=== PATIENT | male | born 1960 | race Caucasian/White ===

== ENCOUNTER 2016-02-28 08:55 | Inpatient (IN) | payer BC ==
[~2016-02-28] VITALS: Ht 162.6 cm; Wt 80.0 kg
[~2016-02-28 08:55] MED LIST: CIPR500T4 PO; HYDR-906 PO
[2016-02-28 08:58] VITALS: Ht 162.6 cm; Wt 80.0 kg
[2016-02-28 10:36] LABS: BASOPHILS % 0.2 % (0.0-2.0); EOSINOPHILS # 0.1 10^3/ul (0.0-0.5); EOSINOPHILS % 1.2 % (0.0-7.0); HEMOGLOBIN 15.4 g/dl (14.0-18.0); LYMPHOCYTES # 1.4 10^3/ul (0.8-2.9); LYMPHOCYTES % 12.2 % (15.0-51.0); MEAN CORPUSCULAR HEMOGLOBIN 29.6 pg (29.0-33.0); MEAN CORPUSCULAR HGB CONC 33.5 g/dl (32.0-37.0); MEAN CORPUSCULAR VOLUME 88.4 fl (82.0-101.0); MEAN PLATELET VOLUME 8.3 fl (7.4-10.4); MONOCYTES % 8.4 % (0.0-11.0); NEUTROPHIL # 9.1 10^3/ul (1.6-7.5); PLATELET COUNT 317 10^3/UL (140-440); RED BLOOD COUNT 5.21 10^6/ul (4.70-6.10); UNCORRECTED WBC 11.7 10^3/ul (4.8-10.8); WHITE BLOOD COUNT 11.7 10^3/ul (4.8-10.8)
[2016-02-28 10:43] LABS: CONDITION 1
[2016-02-28 10:50] LABS: ALBUMIN 4.2 g/dl (3.3-4.9)
[2016-02-28 10:51] LABS: POTASSIUM 3.9 mmol/L (3.5-5.1)
[2016-02-28 10:53] LABS: CREATININE 0.69 mg/dl (0.61-1.24)
[2016-02-28 10:54] LABS: ALBUMIN/GLOBULIN RATIO 0.91; BILIRUBIN,INDIRECT 0.3 mg/dl (0-1.1); BILIRUBIN,TOTAL 0.3 mg/dl (0.2-1.3); TOTAL PROTEIN 8.8 g/dl (6.1-8.1)
[2016-02-28 11:28] LABS: ADD UMIC YES; URINE BILIRUBIN (Dip) NEGATIVE (NEGATIVE); URINE BLOOD (Dip) 3+ (NEGATIVE); URINE COLOR LT. YELLOW (YELLOW); URINE GLUCOSE (Dip) NEGATIVE (NEGATIVE); URINE KETONES (Dip) 40 (NEGATIVE); URINE LEUKOCYTE ESTERASE (Dip) 3+ (NEGATIVE); URINE NITRITE (Dip) NEGATIVE (NEGATIVE); URINE TOTAL PROTEIN (Dip) NEGATIVE (NEGATIVE); URINE UROBILINOGEN (Dip) 0.2 E.U./dL (0.1-1.0)
[2016-02-28 12:18] LABS: BACTERIA,URINE MODERATE
--- NOTE | 2016-02-28 12:32 | RADRPT ---
PROCEDURE: Scrotal ultrasound CLINICAL INDICATION: Testicular swelling, pain, and erythema. TECHNIQUE: Scrotal ultrasound was performed with sagittal and transverse views. Thorpe scale and co joanne imaging was performed. Images were reviewed on high resolution PACS monitors. COMPARISON: Exam dated 02/04/2016. FINDINGS: The right testicle measures 4.8 x 3.4 x 2.9 cm. The right testicle measures 4.8 x 3.4 x 2.9 cm. Ther e is a 5.2 x 2.8 cm heterogeneous collection that causes scalloping of the right testicle, consisten t with a testicular abscess. There is hyperemia of the remaining testicle. The right epididymis is enlarged and hyperemic. The left testicle measures 4.5 x 1.9 x 2.7 cm. There is normal size, echogenicity, and morphology of the left testicle. The left epididymis is normal in appearance.. There is diffuse scrotal wall thickening. There is normal flow within the left testicle. IMPRESSION: 1. New right testicular abscess measuring 5.2 x 2.8 cm. Urology consultation is recommended. Hype remic right testicle and right epididymis, consistent with epididymo-orchitis. 2. Diffuse scrotal wall thickening, likely reactive in nature. These findings discussed with MARGARITA Pizarro, at 1228 hours on 02/28/2016. RPTAT: TT .Emdundo Mohr MD, MD Date Time Electronically viewed and signed by .Edmundo Mohr MD, MD on 02/28/2016 12:31 .P/
[2016-02-28] MEDS ORDERED: PIPER-TAZO 3.375 GM IV (PMX) 100 ML IVPB STA (12:35)
[2016-02-28] MEDS ORDERED: SOD CHLORIDE 0.9% 1,000 ML IV STA (12:35)
[2016-02-28] MEDS ORDERED: VANCOMYCIN 1 GM (PMX) 250 ML IVPB SCH (13:00)
[2016-02-28] MEDS ORDERED: BENA10TA48 PO (13:10)
[2016-02-28] MEDS ORDERED: METF-388 PO (13:10)
[2016-02-28] MEDS ORDERED: GLIM1TAB2 PO (13:10)
[2016-02-28] MEDS ORDERED: ATOR40TA68 PO (13:11)
--- NOTE | 2016-02-28 13:14 | ERA ---
ER Documentation Chief Complaint Date/Time DATE: 02/28/16 TIME: 13:13 Chief Complaint right testicle swelling. been treated with antibiotics on feb 03 already (AUDREY WHITAKER PA-C) HPI This is a 55-year-old male with past medical history of HTN, DMII, and hyperlipidemia presenting to the emergency room complaining of testicular swelling and tenderness for 1 month. Patient has been seen here on February 03 and diagnosed with epididymitis and a urinary tract infection. Patient was treated with ceftriaxone and azithromycin in the ED and sent home with Cipro for 7 days. Patient was instructed to follow-up with her primary care physician , in which she did and has a urology follow-up appointment in 8 days. Patient presents today complaining of increased redness and swelling to his right testicle which has worsened in the past week. He states that when he first started taking the antibiotic it started improving however when he finished antibiotic course, it got worse. Patient complains of 6 out of 10 pain, describing as pressure. He denies any fever. Denies any hematuria or urinary symptoms. (AUDREY WHITAKER PA-C) ROS All systems reviewed and are negative except as per history of present illness. (AUDREY WHITAKER PA-C) Medications Home Meds Reported Medications Atorvastatin* (Atorvastatin*) 40 Mg Tablet, 40 MG PO QHS, #30 TAB 02/28/16 Metformin Hcl* (Metformin Hcl*) 1,000 Mg Tablet, 1000 MG PO WITH BREAKFAST DINNE , #30 TAB 02/28/16 Glimepiride* (Glimepiride*) 1 Mg Tablet, 1 MG PO WITH BREAKFAST DINNE, TAB 02/28/16 Benazepril Hcl* (Benazepril Hcl*) 10 Mg Tablet, 10 MG PO DAILY, #30 TAB 02/28/16 Discontinued Scripts Hydrocodone/Acetaminophen (Cantril 5-325 Tablet) 1 Each Tablet, 1 TAB PO Q6H Y for PAIN, #20 TAB Prov:HOWIE TRINIDAD PA-C 02/04/16 Ciprofloxacin Hcl* (Ciprofloxacin Hcl*) 500 Mg Tablet, 500 MG PO BID for 7 Days , TAB Prov:HOWIE TRINIDAD PA-C 02/04/16 Allergies Allergies: Coded Allergies: No Known Allergy (Unverified , 02/28/16) PMhx/Soc History of Surgery: No Anesthesia Reaction: No Hx Neurological Disorder: No Hx Respiratory Disorders: No Hx Cardiac Disorders: Yes (DMII) Hx Psychiatric Problems: No Hx Miscellaneous Medical Probl: No Hx Alcohol Use: No Hx Substance Use: No Hx Tobacco Use: No Smoking Status: Never smoker (AUDREY WHITAKER PA-C) Physical Exam Vitals Vital Signs Date Time Temp Pulse Resp B/P Pulse Ox O2 Delivery O2 Flow Rate FiO2 02/28/16 08:58 98.1 99 20 180/99 99 (MARIBELERICH ) Physical Exam General: well-developed/well-nourished, in no apparent distress, non-toxic appearing HENT: NC/AT, bilateral tympanic membrane is normal with good cone of light, nares patent, oropharynx clear without exudates Eyes: Conjunctiva normal, PERRLA, EOMI Neck: Supple, no lymphadenopathy Pulm: CTA bilaterally, no rales, rhonchi, or wheezing heard CV: Normal S1S2, RRR, good capillary refill GI: Soft, non-distended, normal bowel sounds, non-tender : no penile discharge or lesions erythematous, enlarged with induration and warmth BL testicles R>L Back: No midline tenderness, no masses, No CVAT Ext: No clubbing, cyanosis, or edema Neuro: Alert and Orientated, CN II-IIX intact, gait normal Skin: Intact, normal turgor Psych: Normal mood and mentation (AUDREY WHITAKER PA-C) Result Diagram: 02/28/1631 02/28/16 0931 Results 24 hrs Laboratory Tests Test 02/28/16 09:31 02/28/16 10:12 02/28/16 10:26 Alanine Aminotransferase (ALT/SGPT) 8IU/L Albumin 4.2g/dl Albumin/Globulin Ratio 0.91 Alkaline Phosphatase 106IU/L Anion Gap 20 Aspartate Amino Transf (AST/SGOT) 14IU/L Basophils # 0.010^3/ul Basophils % 0.2% Blood Urea Nitrogen 9mg/dl Calcium Level 10.0mg/dl Carbon Dioxide Level 27mmol/L Chloride Level 95mmol/L Creatinine 0.69mg/dl Direct Bilirubin 0.00mg/dl Eosinophils # 0.110^3/ul Eosinophils % 1.2% Globulin 4.60g/dl Glucose Level 197mg/dl Hematocrit 46.0% Hemoglobin 15.4g/dl Indirect Bilirubin 0.3mg/dl Lymphocytes # 1.410^3/ul Lymphocytes % 12.2% Mean Corpuscular Hemoglobin 29.6pg Mean Corpuscular Hemoglobin Concent 33.5g/dl Mean Corpuscular Volume 88.4fl Mean Platelet Volume 8.3fl Monocytes # 1.010^3/ul Monocytes % 8.4% Neutrophils # 9.110^3/ul Neutrophils % 78.0% Nucleated Red Blood Cells # 0.010^3/ul Nucleated Red Blood Cells % 0.0/100WBC Platelet Count 53240^3/UL Potassium Level 3.9mmol/L Red Blood Count 5.2110^6/ul Red Cell Distribution Width 14.0% Sodium Level 138mmol/L Total Bilirubin 0.3mg/dl Total Protein 8.8g/dl White Blood Count 11.710^3/ul Lactic Acid Level 1.4mmol/L Urine Bacteria MODERATE Urine Bilirubin NEGATIVE Urine Clarity CLEAR Urine Color LT. YELLOW Urine Epithelial Cells FEW Urine Glucose NEGATIVE% Urine Hemoglobin 3+ Urine Ketones 40 Urine Leukocyte Esterase 3+ Urine Microscopic RBC 2-5/HPF Urine Microscopic WBC 25-50/HPF Urine Nitrite NEGATIVE Urine Specific [place] <=1.005 Urine Total Protein NEGATIVE Urine Urobilinogen 0.2 E.U./dL Urine pH 6.0 Current Medications Medications (Trade) Dose Ordered Sig/Haris Route PRN Reason Start Time Stop Time Status Last Admin Dose Admin Sodium Chloride 1,000 ml @ 1,000 mls/hr Q1H STAT IV 02/28/16 12:35 02/28/16 13:34 DC 02/28/16 13:32 Piperacillin Sod/ Tazobactam Sod 100 ml @ 200 mls/hr ONCE STAT IVPB 02/28/16 12:35 02/28/16 13:04 DC 02/28/16 13:32 Vancomycin HCl (Vancocin) 250 ml @ 125 mls/hr ONCE IVPB 02/28/16 13:00 02/28/16 14:59 Ondansetron HCl (Zofran Inj) 4 mg BRIDGE ORDER PRN IV NAUSEA AND/OR VOMITING 02/28/16 14:00 02/29/16 13:59 Acetaminophen (Tylenol Tab) 650 mg ER BRIDGE PRN PO MILD PAIN/FEVER 02/28/16 14:00 02/29/16 13:59 (ERICH LÓPEZ DO) Procedures/MDM This is a 55-year-old male with past medical history of HTN, DMII, and hyperlipidemia presenting to the emergency room complaining of testicular swelling and tenderness for 1 month. Patient presents today with a testicular abscess. Patient has been seen here on February 03 and diagnosed with epididymitis and a urinary tract infection. Patient was treated with ceftriaxone and azithromycin in the ED and sent home with Cipro for 7 days. Patient was instructed to follow-up with her primary care physician, in which she did and has a urology follow-up appointment in 8 days. Patient presents today complaining of increased redness and swelling to his right testicle which has worsened in the past week. He states that when he first started taking the antibiotic it started improving however when he finished antibiotic course, it got worse. IV access was established. Lab work was drawn. CBC did not show any evidence of significant leukocytosis or anemia. White count was mildly elevated at 11.7 likely due to stress reaction. CMP was unremarkable. Lactate was 1.4. Blood cultures was sent out. Urinalysis did show evidence of a urinary tract infection with +3 leukocyte esterase, 25-50 WBC, and 3+ hgb Scrotal ultrasound showed a new right testicular abscess which would need admission for a urology consultation and drainage. I have consulted Dr. López who has evaluated the patient and helps me advised my management. He advised to give patient Zosyn 3.375 and Vanco 1gram. Patient will be moved to the ER [address] López's care prior to admission, he was stable for transfer. Dr. López will consult hospitalist and urologist Scrotal Ultrasound Today (02/28/2016): 1. New right testicular abscess measuring 5.2 x 2.8 cm. Urology consultation is recommended. Hyperemic right testicle and right epididymis, consistent with epididymo-orchitis. 2. Diffuse scrotal wall thickening, likely reactive in nature. Scrotal Ultrasound (02/03/2017) 1. Hyperemia and enlargement of the right epididymis consistent with epididymitis. 2. Mild hyperemia of the right testis consistent with orchitis. 3. Otherwise unremarkable scrotal ultrasound. (AUDREY WHITAKER PA-C) I saw and examined this patient along with the physician's assistant bookkeeper. Patient initially just wanted to get an antibiotic shot but I talked him into getting an ultrasound. Her concerning appearance of his scrotum which was enlarged and more erythematous and indurated than prior. A testicular abscess and diffuse wall thickening. Advise getting labs and started the patient vancomycin and Zosyn. Angina prevent progression to Nadege's gangrene and damage in loss of genital organs. I spoke with Dr. Mcguire regarding the case he says that Dr. Curiel will see the patient in consult in the Place the patient nothing by mouth diet. I spoke with Dr. Restrepo will be admitting the patient to [facility] awaiting urological surgical management. Patient did have a mild elevated white blood cell count otherwise no other signs of sepsis and infection seems to mostly localized at this point. (ERICH LÓPEZ DO) Departure Diagnosis: Primary Impression: Testicular abscess Additional Impression: UTI (urinary tract infection) Qualified Code: N30.01 - Acute cystitis with hematuria Condition: Serious AUDREY WHITAKER PA-C Feb 28, 2016 13:13 ERICH LÓPEZ DO Feb 28, 2016 14:58
[2016-02-28] MEDS ORDERED: ACETAMINOPHEN 325 MG TAB PO PRN (14:00)
[2016-02-28] MEDS ORDERED: ONDANSETRON 4 MG INJ IV PRN ×2 (14:00→16:00)
[2016-02-28] MEDS ORDERED: HYPOGLYCEMIA PROTOCOL when Glucose is <70 mg/dL or symptomatic <90 mg/dL. XX ONE (16:00)
[2016-02-28] MEDS: SOD CHLORIDE 0.9% 1,000 ML IV SCH ×2 (16:00→21:58)
[2016-02-28] MEDS ORDERED: GLUCAGON 1 MG INJ IM PRN (16:30)
[2016-02-28] MEDS ORDERED: GLUCOSE GEL 15 GRAM TUBE PO PRN ×2 (16:30)
[2016-02-28] MEDS ORDERED: DEXTROSE 50% 50 ML SYRINGE IV PRN ×2 (16:30)
[2016-02-28] MEDS ORDERED: GLUCOSE GEL 15 GRAM TUBE BUCCAL PRN (16:30)
[2016-02-28 17:15] VITALS: TEMP 98.1
[2016-02-28 17:19] LABS: CANNABINOIDS Positive (NEGATIVE)
[2016-02-28] MEDS ORDERED: VANCOMYCIN IV PER PHARMACY XX SCH (17:30)
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
[2016-02-28 17:50] LABS: BARBITURATES Negative (NEGATIVE); BENZODIAZEPINES Negative (NEGATIVE); COCAINE Negative (NEGATIVE); OPIATES Negative (NEGATIVE)
[2016-02-28] MEDS ORDERED: metFORMIN 500 MG TAB PO SCH (18:00)
[2016-02-28] MEDS ORDERED: NICOTINE POLACRILEX 2 MG GUM BUCCAL PRN (18:00)
[2016-02-28] MEDS ORDERED: GLIMEPIRIDE 2 MG TAB PO SCH (18:00)
[2016-02-28] MEDS: VANCOMYCIN 1.25 GM in SOD CHLORIDE 0.9% 250 ML IVPB SCH (18:45)
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
[2016-02-28] MEDS: NICOTINE (21 MG/24 HR) PATCH TRANSDERM SCH (19:17)
[2016-02-28] MEDS: INSULIN ASPART [NOVOLOG] 3 ML PEN SC SCH ×2 (19:31→22:12)
[2016-02-28] MEDS: ATORVASTATIN 40 MG TAB PO SCH (20:53)
[2016-02-28] MEDS: DOCUSATE SODIUM 100 MG CAP PO SCH (20:53)
[2016-02-28] MEDS: HYDROCODONE/APAP (5/325) TAB PO PRN (20:53)
[2016-02-28 21:26] VITALS: BP 142/91; RESP 20
[2016-02-28] MEDS: PIPER-TAZO 3.375 GM IV (PMX) 100 ML IVPB SCH (21:59)
[2016-02-29] VITALS (21 sets, daily range): BP systolic 118–153; BP diastolic 70–88; PULSE 82–94; RESP 14–20
[2016-02-29] MEDS: morphine 2 MG INJ IV PRN ×3 (02:26→20:00)
[2016-02-29 05:20] LABS: BASOPHILS % 0.3 % (0.0-2.0); EOSINOPHILS # 0.2 10^3/ul (0.0-0.5); HEMOGLOBIN 13.1 g/dl (14.0-18.0); LYMPHOCYTES # 1.2 10^3/ul (0.8-2.9); LYMPHOCYTES % 10.5 % (15.0-51.0); MEAN CORPUSCULAR HEMOGLOBIN 29.5 pg (29.0-33.0); MEAN CORPUSCULAR HGB CONC 33.7 g/dl (32.0-37.0); MEAN CORPUSCULAR VOLUME 87.7 fl (82.0-101.0); MEAN PLATELET VOLUME 8.3 fl (7.4-10.4); MONOCYTE # 1.3 10^3/ul (0.3-0.9); MONOCYTES % 11.4 % (0.0-11.0); NEUTROPHIL # 8.3 10^3/ul (1.6-7.5); NEUTROPHILS % 75.8 % (39.0-77.0); PLATELET COUNT 293 10^3/UL (140-440); RED BLOOD COUNT 4.44 10^6/ul (4.70-6.10); RED CELL DISTRIBUTION WIDTH 14.4 % (11.5-14.5); UNCORRECTED WBC 10.9 10^3/ul (4.8-10.8); WHITE BLOOD COUNT 10.9 10^3/ul (4.8-10.8)
[2016-02-29 05:30] LABS: POTASSIUM 3.8 mmol/L (3.5-5.1)
[2016-02-29 05:32] LABS: CREATININE 0.51 mg/dl (0.61-1.24)
[2016-02-29 05:33] LABS: CALCIUM 8.4 mg/dl (8.4-10.2)
[2016-02-29 05:34] LABS: MAGNESIUM 1.9 mg/dl (1.7-2.5)
[2016-02-29] MEDS: PIPER-TAZO 3.375 GM IV (PMX) 100 ML IVPB SCH ×4 (05:36→22:13)
[2016-02-29 06:20] LABS: CONDITION 1
[2016-02-29] MEDS: VANCOMYCIN 1.25 GM in SOD CHLORIDE 0.9% 250 ML IVPB SCH ×2 (06:30→17:53)
[2016-02-29] MEDS: NICOTINE (21 MG/24 HR) PATCH TRANSDERM SCH (08:26)
[2016-02-29] MEDS: FAMOTIDINE 20 MG TAB PO SCH (08:27)
[2016-02-29] MEDS: INSULIN ASPART [NOVOLOG] 3 ML PEN SC SCH ×4 (08:30→21:00)
[2016-02-29] MEDS ORDERED: BENAZEPRIL 10 MG TAB PO SCH (09:00)
[2016-02-29] MEDS: DOCUSATE SODIUM 100 MG CAP PO SCH ×2 (09:00→19:58)
--- NOTE | 2016-02-29 09:52 | PN ---
Date/Time of Note Date/Time of Note DATE: 02/29/16 TIME: 09:46 Assessment/Plan VTE Prophylaxis VTE Prophylaxis Intervention: SCD's Lines/Catheters IV Catheter Type (from Nrsg): Peripheral IV Assessment/Plan Assessment/Plan 55 yo M with 1. R testicular abscess complicating epididymo-orchitis that failed outpt treatment 2. Trauma to scrotum 3. HTN: uncontrolled 4. DM2: Suboptimal control 5. Epidydymo-orchitis : 6. Tobacco abuse PLAN: -Continue broadspectrum abx / appreciate ID input -For abscess drainage today at noon / appreciate urology's prompt intervention -Continue / SSI / resume home regimen post op and modify as indicated -Titrate BP meds for improved control -Tobacco cessation counselling done and will continue to be reinforced throughout hospitalization / nicotine patch and gum provided PRN -Serial labs / pain control/ antiemetics/ antipyretics/ supportive care Prophylaxis: SCDS / pepcid Subjective 24 Hr Interval Summary Free Text/Dictation Patient seen and examined. no new complaints awaiting surgery today Exam/Review of Systems Vital Signs Vitals Vital Signs Date Time Temp Pulse Resp B/P Pulse Ox O2 Delivery O2 Flow Rate FiO2 02/29/16 08:14 98.3 93 20 153/85 96 Intake and Output 02/28/16 02/28/16 02/29/16 15:00 23:00 07:00 Intake Total 800 ml 850 ml Balance 800 ml 850 ml Exam Constitutional: alert, oriented, No distress Psych: nl mood/affect Head: atraumatic, normocephalic Eyes: PERRL, No icteric ENMT: mucosa pink and moist Neck: non-tender, supple Respiratory: clear to auscultation Cardiovascular: regular rate and rhythm, No murmurs/extra sounds Gastrointestinal: non-tender, soft Genitourinary - Male: other (significant testicular swelling R>>L with bilateral tenderness), No nl penis, No nl scrotum Extremities: No edema Neurological: nl mental status, nl speech Skin: No rash or lesions Results Result Diagram: 02/29/160 02/29/16439 Results 24 hrs Laboratory Tests Test 02/28/16 10:12 02/28/16 10:26 02/28/16 19:09 02/28/16 20:55 Lactic Acid Level 1.4 HIV (1&2) Antibody NEGATIVE Urine Amphetamines Screen Negative Urine Bacteria MODERATE Urine Barbiturates Negative Urine Benzodiazepines Screen Negative Urine Bilirubin NEGATIVE Urine Cannabinoids Positive Urine Clarity CLEAR Urine Cocaine Screen Negative Urine Color LT. YELLOW Urine Epithelial Cells FEW Urine Glucose NEGATIVE Urine Hemoglobin 3+ H Urine Ketones 40 Urine Leukocyte Esterase 3+ H Urine Microscopic RBC 2-5 Urine Microscopic WBC 25-50 Urine Nitrite NEGATIVE Urine Opiates Screen Negative Urine Specific Susan <=1.005 L Urine Total Protein NEGATIVE Urine Urobilinogen 0.2 E.U./dL Urine pH 6.0 Bedside Glucose 247 H 190 Test 02/29/16 02:21 02/29/16 04:40 02/29/16 07:53 Bedside Glucose 240 H 228 H Anion Gap 15 Basophils # 0.0 Basophils % 0.3 Blood Urea Nitrogen 7 Calcium Level 8.4 Carbon Dioxide Level 24 Chloride Level 105 # Creatinine 0.51 L Eosinophils # 0.2 Eosinophils % 2.0 Glucose Level 203 Hematocrit 39.0 L Hemoglobin 13.1 L Lymphocytes # 1.2 Lymphocytes % 10.5 L Magnesium Level 1.9 Mean Corpuscular Hemoglobin 29.5 Mean Corpuscular Hemoglobin Concent 33.7 Mean Corpuscular Volume 87.7 Mean Platelet Volume 8.3 Monocytes # 1.3 H Monocytes % 11.4 H Neutrophils # 8.3 H Neutrophils % 75.8 Nucleated Red Blood Cells # 0.0 Nucleated Red Blood Cells % 0.0 Platelet Count 293 Potassium Level 3.8 Red Blood Count 4.44 L Red Cell Distribution Width 14.4 Sodium Level 140 White Blood Count 10.9 H Medications Medications Current Medications Sodium Chloride (NS) 1,000 ml @ 100 mls/hr Q10H IV Last administered on 21:58; Admin Dose 100 MLS/HR; Start 02/28/16 at 16:00 Famotidine (Pepcid) 20 mg DAILY PO Last administered on 02/29/16 08:27; Admin Dose 20 MG; Start 02/29/16 at 09:00 Docusate Sodium (Colace) 100 mg BID PO Last administered on 02/28/16 20:53; Admin Dose 100 MG; Start 02/28/16 at 21:00 Ondansetron HCl (Zofran Inj) 4 mg Q6H PRN IV NAUSEA AND/OR VOMITING; Start at 16:00 Atorvastatin Calcium (Lipitor) 40 mg QHS PO Last administered on 02/28/16 20: 53; Admin Dose 40 MG; Start 02/28/16 at 21:00 Benazepril HCl (Lotensin) 10 mg DAILY PO Last administered on 02/29/16 08:26; Admin Dose 10 MG; Start 02/29/16 at 09:00 Acetaminophen/ Hydrocodone Bitart ([place] (5/325)) 1 tab Q6H PRN PO pain Last administered on 02/28/16 20:53; Admin Dose 1 TAB; Start 02/28/16 at 16:00 Morphine Sulfate (morphine) 2 mg Q4H PRN IV BREAKTHROUGH PAIN Last administered on 02/29/16 06:35; Admin Dose 2 MG; Start 02/28/16 at 16:00 Miscellaneous Information 1 ea NOTE XX ; Start 02/28/16 at 16:30 Glucose (Glutose) 15 gm Q15M PRN PO DECREASED GLUCOSE; Start 02/28/16 at 16:30 Glucose (Glutose) 22.5 gm Q15M PRN PO DECREASED GLUCOSE; Start 02/28/16 at 16: 30 Dextrose (D50w Syringe) 25 ml Q15M PRN IV DECREASED GLUCOSE; Start 02/28/16 at 16:30 Dextrose (D50w Syringe) 50 ml Q15M PRN IV DECREASED GLUCOSE; Start 02/28/16 at 16:30 Glucagon (Glucagen) 1 mg Q15M PRN IM DECREASED GLUCOSE; Start 02/28/16 at 16:30 Glucose 15 gm 15 gm Q15M PRN BUCCAL DECREASED GLUCOSE; Start 02/28/16 at 16:30 Piperacillin Sod/ Tazobactam Sod 100 ml @ 200 mls/hr Q8 IVPB Last administered on 02/29/16 05:39; Admin Dose 200 MLS/HR; Start 02/28/16 at 22:00 Vancomycin HCl/ Sodium Chloride (Vancocin/NS) 250 ml @ 83.333 mls/ hr Q12H IVPB Last administered on 02/29/16 06:30; Admin Dose 83.333 MLS/HR; Start at 18:00 Nicotine (Nicoderm 21 Mg/ 24hr) 1 patch DAILY TRANSDERM Last administered on 08:26; Admin Dose 1 PATCH; Start 02/28/16 at 18:00 Nicotine Polacrilex (Nicorette) 2 mg Q4H PRN BUCCAL cravings; Start 02/28/16 at 18:00 Influenza Virus Vaccine (Fluzone) 0.5 ml ONCE ONCE IM* ; Start 03/02/16 at 09:00 ; Stop 03/02/16 at 09:01 Miscellaneous Information (*Rx Drug Level Order Reminder*) VANCO TROUGH @ 0, 500 ON... ONCE ONCE XX ; Start 03/01/16 at 05:00; Stop 03/01/16 at 05:01 ANTIONE ARTEAGA Feb 29, 2016 09:52
[2016-02-29] MEDS ORDERED: BENAZEPRIL 20 MG TAB PO ONE (10:00)
--- NOTE | 2016-02-29 10:39 | CONS ---
Date/Time of Note Date/Time of Note DATE: 02/29/16 TIME: 10:38 Assessment/Plan Assessment/Plan Chief Complaint/Hosp Course ID PROGRESS NOTE TOTAL ABX DAY # => Vanco IV + Zosyn 24H INTERVAL SUMMARY * OFF FLOOR TO OR TODAY=> EXAM DEFERRED, CHART REVIEWED * Carol: 02/04/16-1104 Rcvd: 02/04/16-1604 Source: CLEAN [facility] Sp Descrip: - Microbiology URINE CULTURE Final Organism 1 ESCHERICHIA COLI COLONY COUNT >100,000 CFU/ml E COLI M.I.C. RX --------- --- AMPICILLIN 4 S CEFAZOLIN S CEFOTAXIME S CIPROFLOXACIN <=0.25 S GENTAMICIN <=1 S LEVOFLOXACIN <=0.12 S NITROFURANTOIN <=16 S TOBRAMYCIN <=1 S TRIMETHOPRIM/SULFAMETHOXAZOLE <=20 S PHYSICAL EXAMINATION: deferred ID ASSESSMENT: 55 yo obese M admit with: 1. Right testicular abscess complicating epididymo-orchitis that failed outpatient treatment w/hx of Trauma to Scrotum * Hx of GNR E.coli UTI 02/04/16 * Repeat UA (+) pyuria 3+ Leuk Esterase w/(-)Micro preliminary 24H 2. SIRS w/borderline tachycardia HR 99, elevated B/P in ED > 180/90, Leukocytosis on admission * No fevers * BCx 02/28/16 (-) 24H 3. HTN: uncontrolled 4. DM2: Suboptimal control 5. HLD 6. Tobacco abuse (-)HIV Screening INVASIVES: *PIV CURRENT ABX: DAY #2 Vanco IV + Zosyn s/p ID RECOMMENDATIONS: CONTINUE Current ABX -> Will f/u post operative . Problems: Consultation Date/Type/Reason Admit Date/Time Feb 28, 2016 at 14:01 Initial Consult Date Exam/Review of Systems Vital Signs Vitals Vital Signs Date Time Temp Pulse Resp B/P Pulse Ox O2 Delivery O2 Flow Rate FiO2 02/29/16 08:14 98.3 93 20 153/85 96 Intake and Output 1/02/28/16 02/29/16 15:00 23:00 07:00 Intake Total 800 ml 850 ml Balance 800 ml 850 ml Results Result Diagram: 02/29/16 0440 02/29/16 0440 Results 24 hrs Laboratory Tests Test 02/28/16 19:09 02/28/16 20:55 02/29/16 02:21 02/29/16 04:40 Bedside Glucose 247 H 190 240 H Anion Gap 15 Basophils # 0.0 Basophils % 0.3 Blood Urea Nitrogen 7 Calcium Level 8.4 Carbon Dioxide Level 24 Chloride Level 105 # Creatinine 0.51 L Eosinophils # 0.2 Eosinophils % 2.0 Glucose Level 203 Hematocrit 39.0 L Hemoglobin 13.1 L Lymphocytes # 1.2 Lymphocytes % 10.5 L Magnesium Level 1.9 Mean Corpuscular Hemoglobin 29.5 Mean Corpuscular Hemoglobin Concent 33.7 Mean Corpuscular Volume 87.7 Mean Platelet Volume 8.3 Monocytes # 1.3 H Monocytes % 11.4 H Neutrophils # 8.3 H Neutrophils % 75.8 Nucleated Red Blood Cells # 0.0 Nucleated Red Blood Cells % 0.0 Platelet Count 293 Potassium Level 3.8 Red Blood Count 4.44 L Red Cell Distribution Width 14.4 Sodium Level 140 White Blood Count 10.9 H Test 02/29/16 07:53 Bedside Glucose 228 H Medications Medications Current Medications Sodium Chloride (NS) 1,000 ml @ 100 mls/hr Q10H IV Last administered on 21:58; Admin Dose 100 MLS/HR; Start 02/28/16 at 16:00 Famotidine (Pepcid) 20 mg DAILY PO Last administered on 02/29/16 08:27; Admin Dose 20 MG; Start 02/29/16 at 09:00 Docusate Sodium (Colace) 100 mg BID PO Last administered on 02/28/16 20:53; Admin Dose 100 MG; Start 02/28/16 at 21:00 Ondansetron HCl (Zofran Inj) 4 mg Q6H PRN IV NAUSEA AND/OR VOMITING; Start at 16:00 Atorvastatin Calcium (Lipitor) 40 mg QHS PO Last administered on 02/28/16 20: 53; Admin Dose 40 MG; Start 02/28/16 at 21:00 Acetaminophen/ Hydrocodone Bitart ([place] (5/325)) 1 tab Q6H PRN PO pain Last administered on 02/28/16 20:53; Admin Dose 1 TAB; Start 02/28/16 at 16:00 Morphine Sulfate (morphine) 2 mg Q4H PRN IV BREAKTHROUGH PAIN Last administered on 02/29/16 06:35; Admin Dose 2 MG; Start 02/28/16 at 16:00 Miscellaneous Information 1 ea NOTE XX ; Start 02/28/16 at 16:30 Glucose (Glutose) 15 gm Q15M PRN PO DECREASED GLUCOSE; Start 02/28/16 at 16:30 Glucose (Glutose) 22.5 gm Q15M PRN PO DECREASED GLUCOSE; Start 02/28/16 at 16: 30 Dextrose (D50w Syringe) 25 ml Q15M PRN IV DECREASED GLUCOSE; Start 02/28/16 at 16:30 Dextrose (D50w Syringe) 50 ml Q15M PRN IV DECREASED GLUCOSE; Start 02/28/16 at 16:30 Glucagon (Glucagen) 1 mg Q15M PRN IM DECREASED GLUCOSE; Start 02/28/16 at 16:30 Glucose 15 gm 15 gm Q15M PRN BUCCAL DECREASED GLUCOSE; Start 02/28/16 at 16:30 Piperacillin Sod/ Tazobactam Sod 100 ml @ 200 mls/hr Q8 IVPB Last administered on 02/29/16 05:39; Admin Dose 200 MLS/HR; Start 02/28/16 at 22:00 Vancomycin HCl/ Sodium Chloride (Vancocin/NS) 250 ml @ 83.333 mls/ hr Q12H IVPB Last administered on 02/29/16 06:30; Admin Dose 83.333 MLS/HR; Start at 18:00 Nicotine (Nicoderm 21 Mg/ 24hr) 1 patch DAILY TRANSDERM Last administered on 08:26; Admin Dose 1 PATCH; Start 02/28/16 at 18:00 Nicotine Polacrilex (Nicorette) 2 mg Q4H PRN BUCCAL cravings; Start 02/28/16 at 18:00 Influenza Virus Vaccine (Fluzone) 0.5 ml ONCE ONCE IM* ; Start 03/02/16 at 09:00 ; Stop 03/02/16 at 09:01 Miscellaneous Information (*Rx Drug Level Order Reminder*) VANCO TROUGH @ 0, 500 ON... ONCE ONCE XX ; Start 03/01/16 at 05:00; Stop 03/01/16 at 05:01 Benazepril HCl (Lotensin) 40 mg DAILY PO ; Start 03/01/16 at 09:00 Insulin Glargine (Lantus) 5 unit ONCE ONCE SC ; Start 02/29/16 at 11:30; Stop 02/29/16 at 11:31 SOHAIL TSE NP Feb 29, 2016 10:39
[2016-02-29 11:02] LABS: INR 1.04; PROTIME 13.6 Sec (12.2-14.2); PT RATIO 1.1
[2016-02-29 11:03] LABS: PARTIAL THROMBOPLASTIN TIME 43.9 Sec (25.0-35.0)
[2016-02-29] MEDS ORDERED: INSULIN GLARGINE [LANtus] 3 ML PEN SC ONE (11:30)
[2016-02-29] MEDS ORDERED: FENTAnyl 50 MCG/ML VIAL IV PRN (12:00)
[2016-02-29] MEDS: SOD CHLORIDE 0.9% 1,000 ML IV SCH (12:00)
[2016-02-29] MEDS ORDERED: METOCLOPRAMIDE 10 MG INJ IV PRN (12:00)
[2016-02-29] MEDS ORDERED: MEPERIDINE 25 MG INJ IV PRN (12:00)
[2016-02-29] MEDS ORDERED: DIPHENHYDRAMINE 50 MG INJ IV PRN (12:00)
[2016-02-29] MEDS ORDERED: MIDAZOLAM 1 MG/ML 2 ML INJ IV PRN (12:00)
[2016-02-29] MEDS ORDERED: ONDANSETRON 4 MG INJ IV PRN ×2 (12:00→13:30)
[2016-02-29] MEDS ORDERED: HYDROmorphONE (0.2 MG/ML) 10ML SYG IV PRN ×2 (12:00)
[2016-02-29] MEDS ORDERED: BUPIVACAINE 0.5% (SDV) 30 ML INJ ONE (12:16)
[2016-02-29] MEDS ORDERED: BACITRACIN/POLYMYXIN 28.35 GM OINT TOP ONE (12:16)
[2016-02-29] MEDS ORDERED: PROPOFOL 20 ML ONE (12:18)
[2016-02-29] MEDS ORDERED: LIDOCAINE 2% (SDV) 5 ML INJ ONE (12:18)
[2016-02-29] MEDS ORDERED: MEPERIDINE 100 MG INJ ONE (12:18)
[2016-02-29] MEDS ORDERED: POLYMYXIN/BACITRACIN 1L IRRIG ONE (12:18)
[2016-02-29] MEDS ORDERED: D5W-0.45 NACL + KCL 20 MEQ 1,000 ML IV SCH (13:16)
[2016-02-29] MEDS ORDERED: CEPASTAT LOZENGE MT PRN (13:30)
[2016-02-29] MEDS ORDERED: HYDROmorphONE 1 MG/ML SYG IV PRN (13:30)
[2016-02-29] MEDS ORDERED: HYDROCODONE/APAP (5/325) TAB PO PRN (13:30)
[2016-02-29] MEDS ORDERED: ACETAMINOPHEN 325 MG TAB PO PRN (13:30)
[2016-02-29] MEDS: FENTAnyl 50 MCG/ML VIAL IV PRN ×2 (13:38→13:55)
--- NOTE | 2016-02-29 14:23 | OPR ---
DATE OF OPERATION: 02/29/2016 PREOPERATIVE DIAGNOSIS: Scrotal abscess. POSTOPERATIVE DIAGNOSIS: Scrotal abscess. OPERATION PERFORMED: Incision and drainage of right-sided scrotal abscess. SURGEON: Osman Curiel MD INDICATION FOR SURGERY: This gentleman presented with a scrotal infection approximately 2 weeks ago and was given oral antibiotics. He came back with an obvious scrotal abscess, confirmed on ultrasou nd. OPERATIVE FINDINGS: The scrotum was filled with a yellow pus which was sent for Gram stain, aerobic and anaerobic cultures, AFB and fungus. The scrotal compartment was completely socked into the scro mylene wall and one could not visualize any normal anatomy. OPERATION: Under general anesthesia the patient was prepped and draped in the supine position. A t ransverse incision was made in the lower aspect of the right scrotum and carried down through the sk in and subcutaneous tissue. About 100 mL of milky pus was removed and sent for pathology. Adhesion s to the scrotal wall were then taken down bluntly. The testicle could not be everted through the w ound, so I left it in situ, as it was viable on ultrasound. At this point the wound was copiously i rrigated with 1 liter of antibiotic solution and then a Tejinder drain brought out through a separate stab wound on the inferior aspect of the scrotum and left lying in the scrotal compartment. The wo und was closed very lightly with Vicryl to the subcutaneous tissue and chromic to the skin. Estimat ed blood loss was approximately 5 mL. A sterile dressing was placed with scrotal fluffs. 10 mL of 0.5% Marcaine plain was instilled into the cord and into the subcutaneous tissue. The patient was a wakened and brought to the recovery room in stable condition. Dictated By: OSMAN CURIEL MD RS/NTS Conf#: [id number] DID#: [id number]
[2016-02-29] MEDS: ATORVASTATIN 40 MG TAB PO SCH (19:58)
[2016-03-01] VITALS: BP 135/75; PULSE 80; RESP 18
[2016-03-01 00:13] VITALS: BP 135/75; RESP 20
[2016-03-01] MEDS: morphine 2 MG INJ IV PRN ×2 (02:28→17:19)
[2016-03-01 05:12] LABS: POTASSIUM 3.6 mmol/L (3.5-5.1)
[2016-03-01 05:15] LABS: CREATININE 0.54 mg/dl (0.61-1.24)
[2016-03-01 05:16] LABS: BASOPHILS % 0.3 % (0.0-2.0); EOSINOPHILS # 0.2 10^3/ul (0.0-0.5); EOSINOPHILS % 2.5 % (0.0-7.0); HEMATOCRIT 39.1 % (42.0-52.0); HEMOGLOBIN 13.2 g/dl (14.0-18.0); LYMPHOCYTES # 1.2 10^3/ul (0.8-2.9); LYMPHOCYTES % 12.4 % (15.0-51.0); MEAN CORPUSCULAR HEMOGLOBIN 29.9 pg (29.0-33.0); MEAN CORPUSCULAR HGB CONC 33.8 g/dl (32.0-37.0); MEAN CORPUSCULAR VOLUME 88.4 fl (82.0-101.0); MEAN PLATELET VOLUME 8.3 fl (7.4-10.4); MONOCYTE # 1.1 10^3/ul (0.3-0.9); MONOCYTES % 11.5 % (0.0-11.0); NEUTROPHIL # 7.3 10^3/ul (1.6-7.5); NEUTROPHILS % 73.3 % (39.0-77.0); PLATELET COUNT 281 10^3/UL (140-440); RED BLOOD COUNT 4.42 10^6/ul (4.70-6.10); RED CELL DISTRIBUTION WIDTH 14.2 % (11.5-14.5); UNCORRECTED WBC 9.9 10^3/ul (4.8-10.8); WHITE BLOOD COUNT 9.9 10^3/ul (4.8-10.8)
[2016-03-01 05:16] LABS: CALCIUM 8.6 mg/dl (8.4-10.2)
[2016-03-01 05:27] LABS: CONDITION 1
[2016-03-01] MEDS: PIPER-TAZO 3.375 GM IV (PMX) 100 ML IVPB SCH ×3 (05:44→22:59)
[2016-03-01 05:48] VITALS: BP 122/78; PULSE 82; RESP 18
[2016-03-01] MEDS: INSULIN ASPART [NOVOLOG] 3 ML PEN SC SCH ×4 (07:50→20:27)
[2016-03-01 07:58] VITALS: BP 124/80; RESP 20
[2016-03-01] MEDS: NICOTINE (21 MG/24 HR) PATCH TRANSDERM SCH ×2 (09:00→19:03)
--- NOTE | 2016-03-01 09:09 | PN ---
Date/Time of Note Date/Time of Note DATE: 03/01/16 TIME: 09:06 Assessment/Plan VTE Prophylaxis VTE Prophylaxis Intervention: SCD's Lines/Catheters IV Catheter Type (from Nrsg): Peripheral IV Assessment/Plan Assessment/Plan 5 yo M with 1. R testicular abscess complicating epididymo-orchitis that failed outpt treatment 2. Trauma to scrotum 3. HTN: uncontrolled 4. DM2: Suboptimal control 5. Epidydymo-orchitis : 6. Tobacco abuse PLAN: -Continue broadspectrum abx / appreciate ID input / f/u intraoperative cultures -Cont routine wound and post op care per urology -Continue / SSI / resume home diabetic regimen and titrate as indicated -Titrate BP meds for improved control -Tobacco cessation counselling done and will continue to be reinforced throughout hospitalization / nicotine patch and gum provided PRN -Serial labs / pain control/ antiemetics/ antipyretics/ supportive care Prophylaxis: SCDS / pepcid Subjective 24 Hr Interval Summary Free Text/Dictation Patient seen and examined. Exam/Review of Systems Vital Signs Vitals Vital Signs Date Time Temp Pulse Resp B/P Pulse Ox O2 Delivery O2 Flow Rate FiO2 03/01/16 07:58 98.2 81 20 124/80 98 03/01/16 05:48 Room Air Intake and Output 02/29/16 02/29/16 03/01/16 15:00 23:00 07:00 Intake Total 500 ml 1440 ml 800 ml Output Total 5 ml Balance 495 ml 1440 ml 800 ml Exam Constitutional: alert, oriented, No distress Psych: nl mood/affect Head: atraumatic, normocephalic Eyes: PERRL, No icteric ENMT: mucosa pink and moist Neck: non-tender, supple Respiratory: clear to auscultation Cardiovascular: regular rate and rhythm, No murmurs/extra sounds Gastrointestinal: non-tender, soft Genitourinary - Male: other , No nl penis, No nl scrotum Extremities: No edema Neurological: nl mental status, nl speech Skin: No rash or lesions Results Result Diagram: 03/01/16 0415 03/01/16 0410 Results 24 hrs Laboratory Tests Test 02/29/16 10:30 02/29/16 10:53 02/29/16 16:39 02/29/16 21:18 Activated Partial Thromboplast Time 43.9 H INR International Normalized Ratio 1.04 Prothrombin Time 13.6 Prothrombin Time Ratio 1.1 Bedside Glucose 170 255 H 175 Test 03/01/16 04:10 03/01/16 04:15 03/01/16 08:12 Anion Gap 16 Blood Urea Nitrogen 4 L Calcium Level 8.6 Carbon Dioxide Level 27 Chloride Level 101 Creatinine 0.54 L Glucose Level 144 # Potassium Level 3.6 Sodium Level 140 Basophils # 0.0 Basophils % 0.3 Eosinophils # 0.2 Eosinophils % 2.5 Hematocrit 39.1 L Hemoglobin 13.2 L Hemoglobin A1c 10.7 H Lymphocytes # 1.2 Lymphocytes % 12.4 L Mean Corpuscular Hemoglobin 29.9 Mean Corpuscular Hemoglobin Concent 33.8 Mean Corpuscular Volume 88.4 Mean Platelet Volume 8.3 Monocytes # 1.1 H Monocytes % 11.5 H Neutrophils # 7.3 Neutrophils % 73.3 Nucleated Red Blood Cells # 0.0 Nucleated Red Blood Cells % 0.0 Platelet Count 281 Red Blood Count 4.42 L Red Cell Distribution Width 14.2 Vancomycin Level Trough 8.7 L White Blood Count 9.9 Bedside Glucose 133 Medications Medications Current Medications Famotidine (Pepcid) 20 mg DAILY PO Last administered on 02/29/16 08:27; Admin Dose 20 MG; Start 02/29/16 at 09:00 Docusate Sodium (Colace) 100 mg BID PO Last administered on 02/29/16 19:58; Admin Dose 100 MG; Start 02/28/16 at 21:00 Ondansetron HCl (Zofran Inj) 4 mg Q6H PRN IV NAUSEA AND/OR VOMITING; Start at 16:00 Atorvastatin Calcium (Lipitor) 40 mg QHS PO Last administered on 02/29/16 19: 58; Admin Dose 40 MG; Start 02/28/16 at 21:00 Acetaminophen/ Hydrocodone Bitart ([place] (5/325)) 1 tab Q6H PRN PO pain Last administered on 02/28/16 20:53; Admin Dose 1 TAB; Start 02/28/16 at 16:00 Morphine Sulfate (morphine) 2 mg Q4H PRN IV BREAKTHROUGH PAIN Last administered on 03/01/16 02:28; Admin Dose 2 MG; Start 02/28/16 at 16:00 Miscellaneous Information 1 ea NOTE XX ; Start 02/28/16 at 16:30 Glucose (Glutose) 15 gm Q15M PRN PO DECREASED GLUCOSE; Start 02/28/16 at 16:30 Glucose (Glutose) 22.5 gm Q15M PRN PO DECREASED GLUCOSE; Start 02/28/16 at 16: 30 Dextrose (D50w Syringe) 25 ml Q15M PRN IV DECREASED GLUCOSE; Start 02/28/16 at 16:30 Dextrose (D50w Syringe) 50 ml Q15M PRN IV DECREASED GLUCOSE; Start 02/28/16 at 16:30 Glucagon (Glucagen) 1 mg Q15M PRN IM DECREASED GLUCOSE; Start 02/28/16 at 16:30 Glucose 15 gm 15 gm Q15M PRN BUCCAL DECREASED GLUCOSE; Start 02/28/16 at 16:30 Piperacillin Sod/ Tazobactam Sod (Zosyn 3.375gm/ 100 ml (Pmx)) 100 ml @ 200 mls /hr Q8 IVPB Last administered on 03/01/16 05:44; Admin Dose 200 MLS/HR; Start 02/28/16 at 22:00 Nicotine (Nicoderm 21 Mg/ 24hr) 1 patch DAILY TRANSDERM Last administered on 08:26; Admin Dose 1 PATCH; Start 02/28/16 at 18:00 Nicotine Polacrilex (Nicorette) 2 mg Q4H PRN BUCCAL cravings; Start 02/28/16 at 18:00 Influenza Virus Vaccine (Fluzone) 0.5 ml ONCE ONCE IM* ; Start 03/02/16 at 09:00 ; Stop 03/02/16 at 09:01 Benazepril HCl (Lotensin) 40 mg DAILY PO ; Start 03/01/16 at 09:00 Hydromorphone HCl (Dilaudid) 0.5 mg Q6H PRN IV PAIN LEVEL 6-10; Start 02/29/16 at 13:30 Acetaminophen/ Hydrocodone Bitart ([place] (5/325)) 1 tab Q6H PRN PO PAIN LEVEL 6 -10; Start 02/29/16 at 13:30 Ketorolac Tromethamine (Toradol) 30 mg Q6H PRN IV PAIN; Start 02/29/16 at 13:30 ; Stop 03/03/16 at 13:29 Acetaminophen (Tylenol Tab) 650 mg Q6H PRN PO PAIN AND OR ELEVATED TEMP; Start 02/29/16 at 13:30 Ondansetron HCl (Zofran Inj) 4 mg Q6H PRN IV NAUSEA AND/OR VOMITING; Start at 13:30 Phenol 1 lozenge 1 lozenge PRN PRN MT SORE THROAT; Start 02/29/16 at 13:30 Vancomycin HCl/ Sodium Chloride (Vancocin/NS) 250 ml @ 83.333 mls/ hr Q12H IVPB ; Start 03/01/16 at 07:00 Procedures Procedures DATE OF OPERATION: 02/29/2016 PREOPERATIVE DIAGNOSIS: Scrotal abscess. POSTOPERATIVE DIAGNOSIS: Scrotal abscess. OPERATION PERFORMED: Incision and drainage of right-sided scrotal abscess. SURGEON: Osman Curiel MD INDICATION FOR SURGERY: This gentleman presented with a scrotal infection approximately 2 weeks ago and was given oral antibiotics. He came back with an obvious scrotal abscess, confirmed on ultrasound. OPERATIVE FINDINGS: The scrotum was filled with a yellow pus which was sent for Gram stain, aerobic and anaerobic cultures, AFB and fungus. The scrotal compartment was completely socked into the scrotal wall and one could not visualize any normal anatomy. ANTIONE ARTEAGA Mar 01, 2016 09:09
[2016-03-01] MEDS: DOCUSATE SODIUM 100 MG CAP PO SCH ×2 (09:25→21:00)
[2016-03-01] MEDS: BENAZEPRIL 40 MG TAB PO SCH (09:26)
[2016-03-01] MEDS: FAMOTIDINE 20 MG TAB PO SCH (09:26)
[2016-03-01] MEDS: VANCOMYCIN 1.5 GM in SOD CHLORIDE 0.9% 250 ML IVPB SCH ×2 (09:27→19:03)
[2016-03-01] MEDS: HYDROCODONE/APAP (5/325) TAB PO PRN ×2 (11:49→20:40)
--- NOTE | 2016-03-01 12:33 | CONS ---
Date/Time of Note Date/Time of Note DATE: 03/01/16 TIME: 12:26 Assessment/Plan Assessment/Plan Chief Complaint/Hosp Course ID PROGRESS NOTE TOTAL ABX DAY # 2.5 => Vanco IV + Zosyn 24H INTERVAL SUMMARY * POD #1 => DATE OF OPERATION: 02/29/2016: Incision and drainage of right- sided scrotal abscess. * Patient reports >60gm pus drained with cultures sent, Vet has drain in place may stay for 2 weeks * Afebrile, WBC normalized * Carol: 02/04/16-1104 Rcvd: 02/04/16-1604 Source: [facility]AN [facility] Sp Descrip: - Microbiology URINE CULTURE Final Organism 1 ESCHERICHIA COLI COLONY COUNT >100,000 CFU/ml E COLI M.I.C. RX --------- --- AMPICILLIN 4 S CEFAZOLIN S CEFOTAXIME S CIPROFLOXACIN <=0.25 S GENTAMICIN <=1 S LEVOFLOXACIN <=0.12 S NITROFURANTOIN <=16 S TOBRAMYCIN <=1 S TRIMETHOPRIM/SULFAMETHOXAZOLE <=20 S PHYSICAL EXAMINATION: A/A/O VSS, no fevers No rash HEENT: unremarkable Chest: Equal chest rise bilaterally without dyspnea on observation CV: Radial pulse RRR ABD: soft : DSG C/D/I EXT: Warm ID ASSESSMENT: 55 yo obese M admit with: 1. Right testicular abscess complicating epididymo-orchitis that failed outpatient treatment w/hx of Trauma to Scrotum POD #1 => DATE OF OPERATION: 02/29/2016: Incision and drainage of right- sided scrotal abscess. * Hx of GNR E.coli UTI 02/04/16 * Repeat UA (+) pyuria 3+ Leuk Esterase w/(-)Micro preliminary 24H 2. SIRS w/borderline tachycardia HR 99, elevated B/P in ED > 180/90, Leukocytosis on admission = RESOLVED * No fevers * BCx 02/28/16 (-) 24H 3. HTN: uncontrolled 4. DM2: A1c 10.7 5. HLD 6. Tobacco abuse (-)HIV Screening INVASIVES: *PIV CURRENT ABX: DAY #2.5 Vanco IV + Zosyn s/p ID RECOMMENDATIONS: CONTINUE Current ABX -> Will f/u post operative cultures if sent Patient interested in HH ABX once micro resulted Tobacco cessation strongly advocated . Problems: Consultation Date/Type/Reason Admit Date/Time Feb 28, 2016 at 14:01 Exam/Review of Systems Vital Signs Vitals Vital Signs Date Time Temp Pulse Resp B/P Pulse Ox O2 Delivery O2 Flow Rate FiO2 03/01/16 07:58 98.2 81 20 124/80 98 03/01/16 05:48 Room Air Intake and Output 02/29/16 02/29/16 03/01/16 15:00 23:00 07:00 Intake Total 500 ml 1440 ml 800 ml Output Total 5 ml Balance 495 ml 1440 ml 800 ml Results Result Diagram: 03/01/16 0415 03/01/16 0410 Results 24 hrs Laboratory Tests Test 02/29/16 16:39 02/29/16 21:18 03/01/16 04:10 03/01/16 04:15 Bedside Glucose 255 H 175 Anion Gap 16 Blood Urea Nitrogen 4 L Calcium Level 8.6 Carbon Dioxide Level 27 Chloride Level 101 Creatinine 0.54 L Glucose Level 144 # Potassium Level 3.6 Sodium Level 140 Basophils # 0.0 Basophils % 0.3 Eosinophils # 0.2 Eosinophils % 2.5 Hematocrit 39.1 L Hemoglobin 13.2 L Hemoglobin A1c 10.7 H Lymphocytes # 1.2 Lymphocytes % 12.4 L Mean Corpuscular Hemoglobin 29.9 Mean Corpuscular Hemoglobin Concent 33.8 Mean Corpuscular Volume 88.4 Mean Platelet Volume 8.3 Monocytes # 1.1 H Monocytes % 11.5 H Neutrophils # 7.3 Neutrophils % 73.3 Nucleated Red Blood Cells # 0.0 Nucleated Red Blood Cells % 0.0 Platelet Count 281 Red Blood Count 4.42 L Red Cell Distribution Width 14.2 Vancomycin Level Trough 8.7 L White Blood Count 9.9 Test 03/01/16 08:12 03/01/16 11:43 Bedside Glucose 133 236 H Medications Medications Current Medications Famotidine (Pepcid) 20 mg DAILY PO Last administered on 03/01/16t 09:26; Admin Dose 20 MG; Start 02/29/16 at 09:00 Docusate Sodium (Colace) 100 mg BID PO Last administered on 03/01/16 09:25; Admin Dose 100 MG; Start 02/28/16 at 21:00 Ondansetron HCl (Zofran Inj) 4 mg Q6H PRN IV NAUSEA AND/OR VOMITING; Start at 16:00 Atorvastatin Calcium (Lipitor) 40 mg QHS PO Last administered on 02/29/16 19: 58; Admin Dose 40 MG; Start 02/28/16 at 21:00 Acetaminophen/ Hydrocodone Bitart ([place] (5/325)) 1 tab Q6H PRN PO pain Last administered on 03/01/16 11:49; Admin Dose 1 TAB; Start 02/28/16 at 16:00 Morphine Sulfate (morphine) 2 mg Q4H PRN IV BREAKTHROUGH PAIN Last administered on 03/01/16 02:28; Admin Dose 2 MG; Start 02/28/16 at 16:00 Miscellaneous Information 1 ea NOTE XX ; Start 02/28/16 at 16:30 Glucose (Glutose) 15 gm Q15M PRN PO DECREASED GLUCOSE; Start 02/28/16 at 16:30 Glucose (Glutose) 22.5 gm Q15M PRN PO DECREASED GLUCOSE; Start 02/28/16 at 16: 30 Dextrose (D50w Syringe) 25 ml Q15M PRN IV DECREASED GLUCOSE; Start 02/28/16 at 16:30 Dextrose (D50w Syringe) 50 ml Q15M PRN IV DECREASED GLUCOSE; Start 02/28/16 at 16:30 Glucagon (Glucagen) 1 mg Q15M PRN IM DECREASED GLUCOSE; Start 02/28/16 at 16:30 Glucose 15 gm 15 gm Q15M PRN BUCCAL DECREASED GLUCOSE; Start 02/28/16 at 16:30 Piperacillin Sod/ Tazobactam Sod (Zosyn 3.375gm/ 100 ml (Pmx)) 100 ml @ 200 mls /hr Q8 IVPB Last administered on 03/01/16 05:44; Admin Dose 200 MLS/HR; Start 02/28/16 at 22:00 Nicotine (Nicoderm 21 Mg/ 24hr) 1 patch DAILY TRANSDERM Last administered on 08:26; Admin Dose 1 PATCH; Start 02/28/16 at 18:00 Nicotine Polacrilex (Nicorette) 2 mg Q4H PRN BUCCAL cravings; Start 02/28/16 at 18:00 Influenza Virus Vaccine (Fluzone) 0.5 ml ONCE ONCE IM* ; Start 03/02/16 at 09:00 ; Stop 03/02/16 at 09:01 Benazepril HCl (Lotensin) 40 mg DAILY PO Last administered on 03/01/16 09:26; Admin Dose 40 MG; Start 03/01/16 at 09:00 Hydromorphone HCl (Dilaudid) 0.5 mg Q6H PRN IV PAIN LEVEL 6-10; Start 02/29/16 at 13:30 Acetaminophen/ Hydrocodone Bitart ([place] (5/325)) 1 tab Q6H PRN PO PAIN LEVEL 6 -10; Start 02/29/16 at 13:30 Ketorolac Tromethamine (Toradol) 30 mg Q6H PRN IV PAIN; Start 02/29/16 at 13:30 ; Stop 03/03/16 at 13:29 Acetaminophen (Tylenol Tab) 650 mg Q6H PRN PO PAIN AND OR ELEVATED TEMP; Start 02/29/16 at 13:30 Ondansetron HCl (Zofran Inj) 4 mg Q6H PRN IV NAUSEA AND/OR VOMITING; Start at 13:30 Phenol 1 lozenge 1 lozenge PRN PRN MT SORE THROAT; Start 02/29/16 at 13:30 Vancomycin HCl/ Sodium Chloride (Vancocin/NS) 250 ml @ 83.333 mls/ hr Q12H IVPB Last administered on 03/01/16 09:27; Admin Dose 83.333 MLS/HR; Start at 07:00 SOHAIL TSE NP Mar 01, 2016 12:33
[2016-03-01] MEDS: metFORMIN 500 MG TAB PO SCH (17:18)
[2016-03-01] MEDS: GLIMEPIRIDE 2 MG TAB PO SCH (17:19)
[2016-03-01] MEDS: NICOTINE POLACRILEX 2 MG GUM BUCCAL PRN (19:04)
[2016-03-01 19:27] VITALS: BP 132/85; RESP 18
[2016-03-01] MEDS: ATORVASTATIN 40 MG TAB PO SCH (20:25)
[2016-03-02] MEDS: PIPER-TAZO 3.375 GM IV (PMX) 100 ML IVPB SCH ×2 (05:11→13:35)
[2016-03-02] MEDS: VANCOMYCIN 1.5 GM in SOD CHLORIDE 0.9% 250 ML IVPB SCH (06:19)
[2016-03-02 06:36] LABS: POTASSIUM 3.8 mmol/L (3.5-5.1)
[2016-03-02 06:38] LABS: CREATININE 0.7 mg/dl (0.61-1.24)
[2016-03-02 06:39] LABS: BASOPHILS % 0.1 % (0.0-2.0); CALCIUM 8.9 mg/dl (8.4-10.2); EOSINOPHILS # 0.3 10^3/ul (0.0-0.5); EOSINOPHILS % 3.5 % (0.0-7.0); HEMATOCRIT 40.2 % (42.0-52.0); HEMOGLOBIN 13.4 g/dl (14.0-18.0); LYMPHOCYTES % 10.5 % (15.0-51.0); MEAN CORPUSCULAR HEMOGLOBIN 29.6 pg (29.0-33.0); MEAN CORPUSCULAR HGB CONC 33.3 g/dl (32.0-37.0); MEAN PLATELET VOLUME 8.7 fl (7.4-10.4); MONOCYTE # 1.1 10^3/ul (0.3-0.9); MONOCYTES % 10.8 % (0.0-11.0); NEUTROPHIL # 7.3 10^3/ul (1.6-7.5); NEUTROPHILS % 75.1 % (39.0-77.0); PLATELET COUNT 316 10^3/UL (140-440); RED BLOOD COUNT 4.51 10^6/ul (4.70-6.10); RED CELL DISTRIBUTION WIDTH 14.5 % (11.5-14.5); UNCORRECTED WBC 9.7 10^3/ul (4.8-10.8); WHITE BLOOD COUNT 9.7 10^3/ul (4.8-10.8)
[2016-03-02 06:46] LABS: CONDITION 1; LH ANALYZER COMMENTS 1
[2016-03-02 07:43] VITALS: BP 112/60; RESP 18
[2016-03-02] MEDS: DOCUSATE SODIUM 100 MG CAP PO SCH (08:45)
[2016-03-02] MEDS: metFORMIN 500 MG TAB PO SCH ×2 (08:45→17:22)
[2016-03-02] MEDS: FAMOTIDINE 20 MG TAB PO SCH (08:45)
[2016-03-02] MEDS: GLIMEPIRIDE 2 MG TAB PO SCH ×2 (08:45→17:22)
[2016-03-02] MEDS: BENAZEPRIL 40 MG TAB PO SCH (08:46)
[2016-03-02] MEDS: INSULIN ASPART [NOVOLOG] 3 ML PEN SC SCH ×3 (08:49→17:28)
[2016-03-02] MEDS: KETOROLAC 30 MG INJ IV PRN ×2 (08:56→17:21)
[2016-03-02] MEDS ORDERED: INFLUENZA VIRUS VACCINE 0.5 ML SYG IM* ONE (09:00)
[2016-03-02] MEDS: NICOTINE POLACRILEX 2 MG GUM BUCCAL PRN (13:42)
--- NOTE | 2016-03-02 14:50 | CONS ---
Date/Time of Note Date/Time of Note DATE: 03/02/16 TIME: 14:41 Assessment/Plan Assessment/Plan Chief Complaint/Hosp Course ID PROGRESS NOTE TOTAL ABX DAY # 3.5 => Vanco IV + Zosyn 24H INTERVAL SUMMARY * POD #2 => DATE OF OPERATION: 02/29/2016: Incision and drainage of right- sided scrotal abscess. * Doing well -- eager to go home with HH ABX and wound care * Patient reports >60gm pus drained with cultures sent, Vet has drain in place may stay for 2 weeks * Afebrile, WBC normalized * Carol: 02/29/16-1246 SCROTUM ANAEROBIC CULTURE Preliminary No anaerobe isolated at 48 hours WOUND CULTURE Final Organism 1 K.PNEUMONIAE SSP PNEUMONIAE QUANTITY 1+ K PNE SPP M.I.C. RX --------- --- CEFAZOLIN I CEFOTAXIME S CIPROFLOXACIN 1 S GENTAMICIN <=1 S LEVOFLOXACIN 1 S TOBRAMYCIN <=1 S TRIMETHOPRIM/SULFAMETHOXAZOLE <=20 S * Carol: 02/04/16-1104 Rcvd: 02/04/16-1604 Source: [facility] Sp Descrip: - Microbiology URINE CULTURE Final Organism 1 ESCHERICHIA COLI COLONY COUNT >100,000 CFU/ml E COLI M.I.C. RX --------- --- AMPICILLIN 4 S CEFAZOLIN S CEFOTAXIME S CIPROFLOXACIN <=0.25 S GENTAMICIN <=1 S LEVOFLOXACIN <=0.12 S NITROFURANTOIN <=16 S TOBRAMYCIN <=1 S TRIMETHOPRIM/SULFAMETHOXAZOLE <=20 S PHYSICAL EXAMINATION: A/A/O VSS, no fevers No rash HEENT: unremarkable Chest: Equal chest rise bilaterally without dyspnea on observation CV: Radial pulse RRR ABD: soft : DSG C/D/I EXT: Warm ID ASSESSMENT: 55 yo obese M admit with: 1. Right testicular abscess complicating epididymo-orchitis that failed outpatient treatment w/hx of Trauma to Scrotum POD #2 => DATE OF OPERATION: 02/29/2016: Incision and drainage of right- sided scrotal abscess. * 02/29/16 Wound Cx: (+)GNR: K.PNEUMONIAE SSP PNEUMONIAE / SCROTUM ANAEROBIC CULTURE Preliminary No anaerobe isolated at 48 hours WOUND CULTURE Final Organism 1 K.PNEUMONIAE SSP PNEUMONIAE QUANTITY 1+ K PNE SPP M.I.C. RX --------- --- CEFAZOLIN I CEFOTAXIME S CIPROFLOXACIN 1 S GENTAMICIN <=1 S LEVOFLOXACIN 1 S TOBRAMYCIN <=1 S TRIMETHOPRIM/SULFAMETHOXAZOLE <=20 S 2. SIRS w/borderline tachycardia HR 99, elevated B/P in ED > 180/90, Leukocytosis on admission = RESOLVED * No fevers * BCx 02/28/16 (-) 24H 3. HTN: uncontrolled 4. DM2: A1c 10.7 5. HLD 6. Tobacco abuse (-)HIV Screening INVASIVES: *PIV CURRENT ABX: DAY # 3.5 Vanco IV + Zosyn s/p ID RECOMMENDATIONS: 1. Wound cx (+)GNR=KP which is sensitive to both Cipro/Levaquin and BACTRIM which have excellent penetration into lower GI tract * GNR KP can develop resistance would treat with "double cover" ABX * Patient has appt with surgeon on WEDNESDAY * Per patient - he was told to anticipate drain for total ~3 weeks 2. When cleared for DC home patient may DC home on PO ABX * Bactrim DS 1 TAB PO BID x 28 days - Take with full glass H20 * Levaquin 500mg PO daily x 28 days . Problems: Consultation Date/Type/Reason Admit Date/Time Feb 28, 2016 at 14:01 Exam/Review of Systems Vital Signs Vitals Vital Signs Date Time Temp Pulse Resp B/P Pulse Ox O2 Delivery O2 Flow Rate FiO2 03/02/16 07:43 97.9 75 18 112/60 98 03/01/16 05:48 Room Air Intake and Output 03/01/16 03/01/16 03/02/16 15:00 23:00 07:00 Intake Total 350 ml 1450 ml Output Total 1900 ml Balance 350 ml -450 ml Results Result Diagram: 03/02/16 0423 03/02/16 0423 Results 24 hrs Laboratory Tests Test 03/01/16 16:46 03/01/16 20:26 03/02/16 04:23 03/02/16 08:08 Bedside Glucose 227 H 161 193 Anion Gap 16 Basophils # 0.0 Basophils % 0.1 Blood Morphology Comment Blood Urea Nitrogen 7 Calcium Level 8.9 Carbon Dioxide Level 30 Chloride Level 100 Creatinine 0.70 Eosinophils # 0.3 Eosinophils % 3.5 Glucose Level 212 Hematocrit 40.2 L Hemoglobin 13.4 L Lymphocytes # 1.0 Lymphocytes % 10.5 L Mean Corpuscular Hemoglobin 29.6 Mean Corpuscular Hemoglobin Concent 33.3 Mean Corpuscular Volume 89.0 Mean Platelet Volume 8.7 Monocytes # 1.1 H Monocytes % 10.8 Neutrophils # 7.3 Neutrophils % 75.1 Nucleated Red Blood Cells # 0.0 Nucleated Red Blood Cells % 0.0 Platelet Count 316 Potassium Level 3.8 Red Blood Count 4.51 L Red Cell Distribution Width 14.5 Sodium Level 142 White Blood Count 9.7 Test 03/02/16 12:03 Bedside Glucose 192 Medications Medications Current Medications Famotidine (Pepcid) 20 mg DAILY PO Last administered on 03/02/16 08:45; Admin Dose 20 MG; Start 02/29/16 at 09:00 Docusate Sodium (Colace) 100 mg BID PO Last administered on 03/02/16 08:45; Admin Dose 100 MG; Start 02/28/16 at 21:00 Atorvastatin Calcium (Lipitor) 40 mg QHS PO Last administered on 03/01/16 20: 25; Admin Dose 40 MG; Start 02/28/16 at 21:00 Acetaminophen/ Hydrocodone Bitart ([place] (5/325)) 1 tab Q6H PRN PO pain Last administered on 03/01/16 20:40; Admin Dose 1 TAB; Start 02/28/16 at 16:00 Morphine Sulfate (morphine) 2 mg Q4H PRN IV BREAKTHROUGH PAIN Last administered on 03/01/16 17:19; Admin Dose 2 MG; Start 02/28/16 at 16:00 Miscellaneous Information 1 ea NOTE XX ; Start 02/28/16 at 16:30 Glucose (Glutose) 15 gm Q15M PRN PO DECREASED GLUCOSE; Start 02/28/16 at 16:30 Glucose (Glutose) 22.5 gm Q15M PRN PO DECREASED GLUCOSE; Start 02/28/16 at 16: 30 Dextrose (D50w Syringe) 25 ml Q15M PRN IV DECREASED GLUCOSE; Start 02/28/16 at 16:30 Dextrose (D50w Syringe) 50 ml Q15M PRN IV DECREASED GLUCOSE; Start 02/28/16 at 16:30 Glucagon (Glucagen) 1 mg Q15M PRN IM DECREASED GLUCOSE; Start 02/28/16 at 16:30 Glucose 15 gm 15 gm Q15M PRN BUCCAL DECREASED GLUCOSE; Start 02/28/16 at 16:30 Piperacillin Sod/ Tazobactam Sod (Zosyn 3.375gm/ 100 ml (Pmx)) 100 ml @ 200 mls /hr Q8 IVPB Last administered on 03/02/16 13:35; Admin Dose 200 MLS/HR; Start 02/28/16 at 22:00 Nicotine (Nicoderm 21 Mg/ 24hr) 1 patch DAILY TRANSDERM Last administered on 19:03; Admin Dose 1 PATCH; Start 02/28/16 at 18:00 Benazepril HCl (Lotensin) 40 mg DAILY PO Last administered on 03/02/16 08:46; Admin Dose 40 MG; Start 03/01/16 at 09:00 Hydromorphone HCl (Dilaudid) 0.5 mg Q6H PRN IV PAIN LEVEL 6-10; Start 02/29/16 at 13:30 Acetaminophen/ Hydrocodone Bitart ([place] (5/325)) 1 tab Q6H PRN PO PAIN LEVEL 6 -10; Start 02/29/16 at 13:30 Ketorolac Tromethamine (Toradol) 30 mg Q6H PRN IV PAIN Last administered on 08:56; Admin Dose 30 MG; Start 02/29/16 at 13:30; Stop 03/03/16 at 13:29 Acetaminophen (Tylenol Tab) 650 mg Q6H PRN PO PAIN AND OR ELEVATED TEMP Last administered on 03/02/16 05:20; Admin Dose 650 MG; Start 02/29/16 at 13:30 Ondansetron HCl (Zofran Inj) 4 mg Q6H PRN IV NAUSEA AND/OR VOMITING; Start at 13:30 Phenol 1 lozenge 1 lozenge PRN PRN MT SORE THROAT; Start 02/29/16 at 13:30 Vancomycin HCl/ Sodium Chloride (Vancocin/NS) 250 ml @ 83.333 mls/ hr Q12H IVPB Last administered on 03/02/16 06:19; Admin Dose 83.333 MLS/HR; Start at 07:00 Nicotine Polacrilex (Nicorette) 2 mg Q4H PRN BUCCAL cravings Last administered on 03/02/16 13:42; Admin Dose 2 MG; Start 03/01/16 at 17:30 SOHAIL TSE NP Mar 02, 2016 14:50
--- NOTE | 2016-03-02 17:22 | PDOCDIS ---
Discharge Instructions DIAGNOSIS Discharge Diagnosis: abscess CONDITION Patient Condition: Good HOME CARE INSTRUCTIONS: Diet Instructions: 1800 ada ACTIVITY: Activity Restrictions: Slowly Increase Activity FOLLOW UP/APPOINTMENTS Appointments Dr Curiel wednesday Primary Care - 1wMITCHELL Cuellar MD Mar 02, 2016 17:22
[2016-03-02] MEDS ORDERED: LACT1CAP57 PO (17:34)
[2016-03-02] MEDS ORDERED: LEVO500T72 PO (17:39)
[2016-03-02] MEDS ORDERED: BACTDS PO (17:39)
[2016-03-02] MEDS ORDERED: LEVOFLOXACIN 500 MG TAB PO SCH (18:00)
[2016-03-02] MEDS ORDERED: TRIMETHOPRIM/SULFAMETHOX (DS) TAB PO SCH (18:00)
[2016-03-03] MEDS ORDERED: SPECIAL NON-STANDARD MEDICATION PO SCH (09:00)
--- NOTE | 2016-03-03 10:20 | DS ---
DATE OF ADMISSION: 02/28/2016 DATE OF DISCHARGE: 03/02/2016 PRIMARY CARE PHYSICIAN: Unknown. JUDICIAL LAW CLERK: Dr. Landaverde, Dr. Kelly Curiel. DIAGNOSES ON ADMISSION: 1. Scrotal abscess. 2. Diabetes. 3. Tobacco abuse. DIAGNOSES ON DISCHARGE: 1. Scrotal abscess. 2. Diabetes. 3. Tobacco abuse. 4. Metabolic syndrome. HOSPITAL COURSE: A 55-year-old gentleman admitted with scrotal abscess. Underwent incision and skip inage under the care of Dr. Curiel. Please see operative report for complete details. Scrotal abs cess was confirmed on ultrasound. Postoperative hospital was uncomplicated, patient is tolera ting diet, pain is controlled and he is fit for discharge. He still has a drain. Cultures show org anisms sensitive to Levaquin and Bactrim. DISCHARGE PLAN: Home. Follow up with primary in 1 week. Urology, Dr. Curiel, this or , infectious disease as needed. DIET: 1800 ADA. ACTIVITY: As tolerated. ALLERGIES: NONE. CODE STATUS: Full. CONDITION: Fair. PENDING TESTS: None. FUNCTIONAL STATUS: Awake, alert, agrees with plan of care. BARRIERS TO DISCHARGE: None. DURABLE MEDICAL EQUIPMENT: He has an abdominal binder. LABORATORY DATA: BMP essentially unremarkable. A1c is 10.7, unfortunately. LFTs are okay. I did auto travel counselor him regarding the issue of high blood sugar. INR 1. Serology for hepatitis unremarkable. Urine toxicity screen unremarkable except for marijuana. Urine showed RBCs 2 to 5, white cells 25 t o 50, few epithelial, moderate bacteria, hemoglobin 3+, nitrite negative, leukocyte esterase +3, whi te cell count of 9, hemoglobin and hematocrit of 13 and 40, platelets of 316. DISCHARGE MEDICATIONS: CONTINUED MEDICATIONS: 1. Lipitor 40. 2. Benazepril 10. 3. Amaryl 1. 4. Metformin 1000 twice daily. NEW MEDICATION: 1. Culturelle 1 capsule twice daily. 2. Levaquin 500 daily. 3. Bactrim-DS 1 tablet twice daily. 4. Antibiotics for 28 days. Dictated By: MITCHELL LOPEZ MD AC/NTS Conf#: [id number] DID#: [id number] CC: BRANDY LANDAVERDE MD; KELLY CURIEL MD;*EndCC*
== END 2016-03-02 19:00 | disposition home or self-care (01) | DRG 728 ==
LOC: FTE 08:55 → MS1 14:01
PROVIDERS: ADMIT Family Medicine; ATTEND Family Medicine
PROC: 0V950ZX Drainage of Scrotum, Open Approach, Diagnostic (ICD-10-PCS; principal; 2016-02-29 12:00)
DX: N49.2 Inflammatory disorders of scrotum (principal); N39.0 Urinary tract infection, site not specified; I10 Essential (primary) hypertension; E11.9 Type 2 diabetes mellitus without complications; B96.1 Klebsiella pneumoniae [K. pneumoniae] as the cause of diseases classified elsewhere; B96.20 Unspecified Escherichia coli [E. coli] as the cause of diseases classified elsewhere; E78.5 Hyperlipidemia, unspecified; F17.210 Nicotine dependence, cigarettes, uncomplicated; Z79.4 Long term (current) use of insulin
CPT/HCPCS: 36415; 76870; 80048; 80053; 80202; 80307; 81001; 81003; 82962; 83036; 83605; 83735; 85025; 85610; 85730; 86703; 87040; 87070; 87075; 87086; 87102; 87116; 87591; 90686; 96372; 96374; 96375; 96376; J1815; J1885; J2175; J2270; J2405; J2543; J3010; J3370; J3480; J7030; J7050

== ENCOUNTER 2016-06-04 09:03 | Emergency (ER) | payer BC ==
[~2016-06-04] VITALS: Ht 167.6 cm; Wt 80.0 kg
[~2016-06-04 09:03] MED LIST changes: +ATOR40TA68 PO; +BACTDS PO; +BENA10TA48 PO; -CIPR500T4 PO; +GLIM1TAB2 PO; -HYDR-906 PO; +LACT1CAP57 PO; +LEVO500T72 PO; +METF1000 PO
[2016-06-04 09:05] VITALS: Ht 167.6 cm; Wt 80.0 kg
[2016-06-04] MEDS ORDERED: GLYC1SUP92 PR (09:34)
[2016-06-04] MEDS ORDERED: MAGN296S40 PO (09:35)
--- NOTE | 2016-06-04 09:40 | ERD ---
ER Documentation Chief Complaint Date/Time DATE: 06/04/16 TIME: 09:36 Chief Complaint abdominal pain x 1 month, dx hernia HPI 55-year-old male who presents with constipation. The patient describes a history of left inguinal hernia that is easily reducible occasionally protuberant when he feels constipated. This occurred approximately 1 month ago and resolved. Over the last several days the patient states inability to have a good bowel movement. He denies any nausea or vomiting. Occasionally he is feeling his left inguinal hernia pop out but it is easily pressed back in. He denies any pain to the left lower quadrant. No abdominal pain or cramping. He denies any [id number] medications other than a single tablet of laxative. This has not improved his symptoms. ROS All systems reviewed and are negative except as per history of present illness. Medications Home Meds Active Scripts Magnesium Citrate* (Magnesium Citrate*) 296 Ml Solution, 296 ML PO ONCE Y for CONSTIPATION, #1 BOTTLE 3 Refills Prov:CHARAN LAST MD 06/04/16 Glycerin* (Glycerin (Adult)*) 1 Each Supp.rect, 1 EACH NC DAILY Y for CONSTIPATION, #10 SUPP.RECT Prov:CHARAN LAST MD 06/04/16 Sulfamethoxazole-Trimethoprim* (Bactrim* DS) 800-160 Mg Tab, 1 TAB PO BID for 28 Days, #60 TAB Prov:MITCHELL LOPEZ MD 03/02/16 Levofloxacin* (Levaquin*) 500 Mg Tablet, 500 MG PO DAILY@06 for 28 Days, #30 TAB Prov:MITCHELL LOPEZ MD 03/02/16 Lactobacillus Rhamnosus* (Culturelle*) 1 Each Cap.sprink, 1 CAP PO BID for 30 Days, CAP Prov:MITCHELL LOPEZ MD 03/02/16 Reported Medications Atorvastatin* (Atorvastatin*) 40 Mg Tablet, 40 MG PO QHS, #30 TAB 02/28/16 Metformin Hcl* (Metformin Hcl*) 1,000 Mg Tablet, 1000 MG PO WITH BREAKFAST DINNE , #30 TAB 02/28/16 Glimepiride* (Glimepiride*) 1 Mg Tablet, 1 MG PO WITH BREAKFAST DINNE, TAB 02/28/16 Benazepril Hcl* (Benazepril Hcl*) 10 Mg Tablet, 10 MG PO DAILY, #30 TAB 02/28/16 Allergies Allergies: Coded Allergies: No Known Allergy (Unverified , 02/28/16) PMhx/Soc History of Surgery: No Anesthesia Reaction: No Hx Neurological Disorder: No Hx Respiratory Disorders: No Hx Cardiac Disorders: Yes (HTN, Hypercholesterol) Hx Psychiatric Problems: No Hx Miscellaneous Medical Probl: No Hx Substance Use: No Hx Tobacco Use: Yes Smoking Status: Never smoker FmHx Family History: No diabetes Physical Exam Vitals Vital Signs Date Time Temp Pulse Resp B/P Pulse Ox O2 Delivery O2 Flow Rate FiO2 06/04/16 09:05 98.2 108 18 161/84 99 Physical Exam General: Well developed, well nourished, no acute distress Head: Normocephalic, atraumatic. Eyes: Pupils equally reactive, EOM intact ENT: Moist mucous membranes Neck: Supple, no lymphadenopathy Respiratory: Lungs clear bilaterally, no distress Cardiovascular: RRR, no murmurs, rubs, or gallops Abdominal: Soft, non-tender, non-distended, no peritoneal signs, mild induration along the left inguinal ring but no focal tenderness, the inguinal hernia is easily reducible and non-protuberant. : No hernia in scrotum MSK: No edema, no unilateral swelling, 5/5 strength Neurologic: Alert and oriented, moving all extremities, normal speech, no focal weakness, no cerebellar signs Skin: No rash Psych: Normal mood Procedures/MDM The patient presents with signs and symptoms consistent with constipation. The patient has had constipation in the past. The patient does have signs and symptoms consistent with a reducible left inguinal hernia. On physical exam patient does have some mild induration along the inguinal tract but has no focal tenderness. His constipation is likely secondary to constipation alone. Clinically the patient has no pain on examination, no pain out of proportion. I do not believe he has evidence of an incarcerated or strangulate hernia. For this reason I do not believe the laboratory testing or CT imaging is necessary. I strongly recommended the patient follow-up with a general surgeon for likely surgical repair. Referral information was provided. I believe a trial of magnesium citrate and glycerin suppository would be appropriate for his constipation. The patient was advised to return for any worsening symptoms including pain, inability to reduce the hernia. The patient verbalizes understanding. The patient is safe for discharge. We discussed follow up with the patient's primary care doctor within 24 to 48 hours as needed. We also discussed return to the emergency room for worsening symptoms or worsening condition. Outpatient referral: General surgeon Discharge Medications: Magnesium citrate, glycerin suppository Departure Diagnosis: Primary Impression: Inguinal hernia Obstruction and gangrene presence: without obstruction or gangrene Laterality : unilateral Recurrence: recurrent Qualified Code: K40.91 - Unilateral recurrent inguinal hernia without obstruction or gangrene Additional Impression: Constipation Constipation type: unspecified constipation type Qualified Code: K59.00 - Constipation, unspecified constipation type Condition: Good Patient Instructions: Constipation (Adult), Hernia (Inguinal, Ventral, Umbilical) Referrals: CARLA HAM M.D. Additional Instructions: You will need to see a general surgeon for your inguinal hernia for repair at some point. Please return for any worsening pain, inability to push in the hernia. CHARAN LAST MD Jun 04, 2016 09:40
== END 2016-06-04 10:03 | disposition home or self-care (01) ==
LOC: E/R 09:03
DX: K40.91 Unilateral inguinal hernia, without obstruction or gangrene, recurrent (principal); K59.00 Constipation, unspecified; I10 Essential (primary) hypertension; Z79.84 Long term (current) use of oral hypoglycemic drugs; Z87.891 Personal history of nicotine dependence
CPT/HCPCS: 99283

== ENCOUNTER 2016-06-12 09:18 | Inpatient (IN) | payer BC ==
[~2016-06-12] VITALS: Ht 162.6 cm; Wt 79.0 kg
[~2016-06-12 09:18] MED LIST changes: +GLYC1SUP92 PR; +MAGN296S40 PO
[2016-06-12] MEDS ORDERED: morphine 4 MG/ML VIAL IV STA (14:49)
[2016-06-12 15:18] LABS: ADD SCAN DIFF NO
[2016-06-12 15:19] LABS: BASOPHIL # 0.1 10^3/ul (0.0-0.1); BASOPHILS % 0.6 % (0.0-2.0); EOSINOPHILS # 0.1 10^3/ul (0.0-0.5); EOSINOPHILS % 0.8 % (0.0-7.0); HEMATOCRIT 45.1 % (42.0-52.0); HEMOGLOBIN 15.4 g/dl (14.0-18.0); LYMPHOCYTES # 1.3 10^3/ul (0.8-2.9); LYMPHOCYTES % 16.6 % (15.0-51.0); MEAN CORPUSCULAR HGB CONC 34.1 g/dl (32.0-37.0); MEAN CORPUSCULAR VOLUME 90.9 fl (82.0-101.0); MEAN PLATELET VOLUME 9.2 fl (7.4-10.4); MONOCYTE # 1.2 10^3/ul (0.3-0.9); MONOCYTES % 14.7 % (0.0-11.0); NEUTROPHIL # 5.1 10^3/ul (1.6-7.5); NEUTROPHILS % 65.3 % (39.0-77.0); PLATELET COUNT 390 10^3/UL (140-415); RED BLOOD COUNT 4.96 10^6/ul (4.70-6.10); RED CELL DISTRIBUTION WIDTH 14.4 % (11.5-14.5); WHITE BLOOD COUNT 7.9 10^3/ul (4.8-10.8)
[2016-06-12] MEDS ORDERED: NEPH PO (15:32)
[2016-06-12] MEDS ORDERED: ASPI-664 PO (15:33)
[2016-06-12] MEDS ORDERED: IBUP200C PO (15:34)
[2016-06-12] MEDS ORDERED: ACET-141 PO (15:34)
[2016-06-12 15:40] LABS: ADD UMIC YES; URINE BILIRUBIN (Dip) NEGATIVE (NEGATIVE); URINE BLOOD (Dip) TRACE (NEGATIVE); URINE COLOR LT. YELLOW (YELLOW); URINE GLUCOSE (Dip) NEGATIVE (NEGATIVE); URINE KETONES (Dip) 40 (NEGATIVE); URINE LEUKOCYTE ESTERASE (Dip) 3+ (NEGATIVE); URINE NITRITE (Dip) NEGATIVE (NEGATIVE); URINE TOTAL PROTEIN (Dip) NEGATIVE (NEGATIVE); URINE UROBILINOGEN (Dip) 0.2 E.U./dL (0.1-1.0)
[2016-06-12 15:50] LABS: BACTERIA,URINE FEW; TRANSITIONAL EPI CELLS,URINE OCCASIONAL; URINE RBCS 0-2 /HPF (0)
[2016-06-12 15:52] LABS: ALBUMIN/GLOBULIN RATIO 0.97
[2016-06-12 15:55] LABS: ALBUMIN 3.6 g/dl (3.3-4.9); BILIRUBIN,INDIRECT 0.1 mg/dl (0-1.1); BILIRUBIN,TOTAL 0.1 mg/dl (0.2-1.3); CALCIUM 9.4 mg/dl (8.4-10.2); CREATININE 0.66 mg/dl (0.61-1.24); POTASSIUM 4.3 mmol/L (3.5-5.1); TOTAL PROTEIN 7.3 g/dl (6.1-8.1)
[2016-06-12] MEDS ORDERED: PIPER-TAZO 3.375 GM IV (PMX) 100 ML IVPB STA (16:10)
[2016-06-12] MEDS ORDERED: SODIUM CHLORIDE 0.9% 1L BAG IV* STA (16:10)
--- NOTE | 2016-06-12 16:21 | RADRPT ---
AMENDMENT: 06/16/2016 1:33:05 PM Nirmal Valiente M.D. Additional finding: There is a 2.2 cm hypodense left adrenal nodule consistent with a lipid rich ad enoma. PROCEDURE: CT Abdomen and Pelvis without contrast. CLINICAL INDICATION: Left sided abdominal pain, tenderness. TECHNIQUE: CT scan of the abdomen and pelvis without contrast was performed on a multidetector hig h-resolution CT scanner. The patient was scanned without intravenous contrast. Coronal and sagittal reformatted images were obtained from the axial source images. Images were reviewed on a high-resol [employer] PACS workstation. One or more of the following dose reduction techniques were used: Automated exposure control, adjustment of the mA and/or kV according to patient size, use of iterative recon struction technique. The total exam CTDI equals 12.04 mGy and the total exam DLP equals 738.45 mGy- cm. COMPARISON: None. FINDINGS: CT abdomen: The lung bases are clear. The heart size is normal, without pericardial thickening or effusion. The liver is normal in size and density without focal mass or intrahepatic biliary dilatation. The spleen is normal in size and homogeneous in density. The stomach is grossly unremarkable. The panc reas as visualized is normal. The gallbladder and biliary tree are unremarkable and there is no trever dence for biliary dilatation. The adrenal glands are symmetric and normal. The kidneys are symmetr ically unremarkable as well. No renal calculus or obstructive uropathy or mass lesion is seen. The aorta is of normal caliber. Heavy aortoiliac atherosclerotic calcifications are present. There is no retroperitoneal lymphadenopathy. The allison hepatis region is clear. The small bowel and mes entery, as visualized, are unremarkable. There is a small fat containing umbilical hernia. CT pelvis: The proximal sigmoid colon demonstrates heavy inflammation with circumferential wall thickening and pericolonic fat stranding. There is associated fistulization from this loop of inflamed sigmoid col on to the subcutaneous adipose tissues of the left anterior pelvic wall as well as fistulization to the urinary bladder with a small amount of nondependent air seen within the urinary bladder and like ly associated diffuse inflammatory bladder wall thickening. There is a 7.0 x 6.4 x 4.9 cm left ante rior pelvic subcutaneous collection with air-fluid level at the site of the fistula consistent with associated abscess. No definite associated cutaneous defect is seen. There are surrounding subcuta neous inflammatory changes and overlying skin thickening. There is also a small pericolonic organize d fluid collection measuring 1.7 x 2.0 x 1.3 cm (image 51 of series 601 and image 116 of series 3). The small bowel loops situated within the pelvis are unremarkable. The pelvic sidewalls and inguina l regions are clear. The appendix is normal. No mass, lymphadenopathy, or free fluid is seen. There is grade 1 anterolisthesis of L5 on S1 with associated bilateral chronic pars defects. No ost eolytic or osteoblastic lesion is detected. IMPRESSION: 1. Heavy proximal sigmoid colon inflammation with associated fistulization to the subcutaneous adip ose tissues of the left anterior pelvis as well as fistulization to the urinary bladder as described above and pictured below. At the subcutaneous aspect of the fistula is a 7.0 x 6.4 x 4.9 cm air fl uid collection consistent with an abscess (seen below). There is also a small 1.7 x 2.0 x 1.3 cm pe ricolonic abscess intraperitoneally. Correlate with possible history of inflammatory bowel disease such as Crohn's disease. 2. Heavy aortic atherosclerosis 3. Grade 1 anterolisthesis of L5 on S1 with associated bilateral chronic pars defects Findings discussed with Dr. Cal Moreno on 06/12/2016 at 04:07 PM. RPTAT: QQ .Nirmal Valiente MD, Date Time Electronically viewed and signed by .Nirmal Valiente MD, on 06/16/2016 13:33 .A/
[2016-06-12] MEDS ORDERED: morphine 10 MG INJ IV ONE (16:30)
[2016-06-12 16:35] LABS: INR 1.02; PROTIME 13.4 Sec (12.2-14.2)
[2016-06-12 16:36] LABS: PARTIAL THROMBOPLASTIN TIME 42.3 Sec (25.0-35.0)
[2016-06-12] MEDS ORDERED: ACETAMINOPHEN 325 MG TAB PO PRN ×2 (17:00→18:30)
[2016-06-12] MEDS ORDERED: ONDANSETRON 4 MG INJ IV PRN ×2 (17:00→18:30)
[2016-06-12] MEDS ORDERED: VANCOMYCIN 1 GM (PMX) 250 ML IVPB ONE (17:00)
--- NOTE | 2016-06-12 17:08 | RADRPT ---
PROCEDURE: Scrotal ultrasound CLINICAL INDICATION: Left lower quadrant pain with recent testicular abscess. TECHNIQUE: Scrotal ultrasound was performed with sagittal and transverse views. Thorpe scale and co joanne imaging was performed. Images were reviewed on high resolution PACS monitors. COMPARISON: Previous study from 02/28/2016. FINDINGS: The right testicle measures 4.5 x 1.7 x 3.6 cm. The left testicle measures 4.2 x 2.3 x 3.00 cm. There is normal size and echogenicity and morphology bilaterally. The previously described right testicular abscess has resolved in the interval. There is normal blood flow seen bilaterally. The epididymi are normal. There is a small left-sided hydrocele with some internal debris present. There is no evidence for varicocele. In the left inguinal area there is a mixed echogenicity subcutaneous measuring 6.3 x 2.3 x 3.0 cm. There is some slight increased vascularity surrounding the area. No mass or cyst or other abnormality is seen. IMPRESSION: 1. 6.3 x 2.3 x 3.0 cm subcutaneous focus in the left inguinal region. This may represent a phlegmon or developing abscess. Interval surveillance is suggested. 2. Symmetrically normal-appearing testis and epididymi with apparent complete resolution of a previo usly described right testicular abscess. 3. Small left hydrocele. RPTAT: [facility] Physician Rosa Date Time Electronically viewed and signed by Physician Rosa on 06/12/2016 17:08 /
[2016-06-12] MEDS ORDERED: HYDROmorphONE 1 MG/ML SYG IV STA (17:09)
--- NOTE | 2016-06-12 18:29 | ERA ---
ER Documentation Chief Complaint Date/Time DATE: 06/12/16 TIME: 18:19 Chief Complaint LEFT INGUINAL HERNIA, AREA LOOKED RED PER PT HPI This 55-year-old male presents emergency room for irritation and pain of his left lower quadrant and pelvis. He has been told by his doctor that he has a hernia in that area which has been present for some time. There is now some overlying erythema and he wanted to get it checked out. Patient was seen here last week for testicular pain. He currently does not have pain in the testicles. I reviewed his EMR and sedated had a testicular abscess in February. He denies nausea or vomiting. He is still passing gas and having bowel movements. ROS All systems reviewed and are negative except as per history of present illness. Medications Home Meds Reported Medications Ibuprofen* (Ibuprofen*) 200 Mg Capsule, 200 MG PO QID Y for PAIN, CAP 06/12/16 Acetaminophen* (Acetaminophen*) 500 MG Extra Strength Tablet, 500 MG PO Q4H Y for PAIN AND OR ELEVATED TEMP, TAB 06/12/16 Aspirin* (Aspirin* EC) 81 Mg Tablet.dr, 81 MG PO DAILY, TAB 06/12/16 Multivit/Ca Carb/B Cmplx/Fa* (Monik-Roosevelt*) 1 Tab Tab, 1 TAB PO DAILY, TAB 06/12/16 Atorvastatin* (Atorvastatin*) 40 Mg Tablet, 40 MG PO QHS, #30 TAB 02/28/16 Metformin Hcl* (Metformin Hcl*) 1,000 Mg Tablet, 1000 MG PO WITH BREAKFAST DINNE , #30 TAB 02/28/16 Glimepiride* (Glimepiride*) 1 Mg Tablet, 1 MG PO WITH BREAKFAST DINNE, TAB 02/28/16 Benazepril Hcl* (Benazepril Hcl*) 10 Mg Tablet, 10 MG PO DAILY, #30 TAB 02/28/16 Discontinued Scripts Magnesium Citrate* (Magnesium Citrate*) 296 Ml Solution, 296 ML PO ONCE Y for CONSTIPATION, #1 BOTTLE 3 Refills Prov:CHARAN LAST MD 06/04/16 Glycerin* (Glycerin (Adult)*) 1 Each Supp.rect, 1 EACH PA DAILY Y for CONSTIPATION, #10 SUPP.RECT Prov:CHARAN LAST MD 06/04/16 Sulfamethoxazole-Trimethoprim* (Bactrim* DS) 800-160 Mg Tab, 1 TAB PO BID for 28 Days, #60 TAB Prov:MITCHELL LOPEZ MD 03/02/16 Levofloxacin* (Levaquin*) 500 Mg Tablet, 500 MG PO DAILY@06 for 28 Days, #30 TAB Prov:MITCHELL LOPEZ MD 03/02/16 Lactobacillus Rhamnosus* (Culturelle*) 1 Each Cap.sprink, 1 CAP PO BID for 30 Days, CAP Prov:MITCHELL LOPEZ MD 03/02/16 Allergies Allergies: Coded Allergies: No Known Allergy (Unverified , 06/12/16) PMhx/Soc History of Surgery: No Anesthesia Reaction: No Hx Neurological Disorder: No Hx Respiratory Disorders: No Hx Cardiac Disorders: No Hx Psychiatric Problems: No Hx Miscellaneous Medical Probl: Yes Hx Alcohol Use: No Hx Substance Use: No Hx Tobacco Use: No Smoking Status: Never smoker Physical Exam Vitals Vital Signs Date Time Temp Pulse Resp B/P Pulse Ox O2 Delivery O2 Flow Rate FiO2 06/12/16 09:28 98.1 120 20 147/86 99 Physical Exam Const: [] Mild distress Head: Atraumatic Eyes: Normal Conjunctiva ENT: Normal External Ears, Nose and Mouth. Neck: Full range of motion..~ No meningismus. Resp: Clear to auscultation bilaterally Cardio: Regular tachycardia, no murmurs Abd: Soft, mild left lower quadrant tenderness, mild to moderate pelvic tenderness without guarding or rebound, overlying erythema with the appearance of cellulitis, left pelvis is chappell than the right with the appearance of a hernia. No palpable hernia on testicular exam, non distended. Normal bowel sounds Skin: No petechiae or rashes Back: No midline or flank tenderness Ext: No cyanosis, or edema Neur: Awake and alert and oriented 3, no focal deficits Psych: Normal Mood and Affect Result Diagram: 06/12/16 1500 06/12/16 1500 Results 24 hrs Laboratory Tests Test 06/12/16 15:00 06/12/16 15:11 06/12/16 16:20 White Blood Count 7.910^3/ul Red Blood Count 4.9610^6/ul Hemoglobin 15.4g/dl Hematocrit 45.1% Mean Corpuscular Volume 90.9fl Mean Corpuscular Hemoglobin 31.0pg Mean Corpuscular Hemoglobin Concent 34.1g/dl Red Cell Distribution Width 14.4% Platelet Count 39529^3/UL Mean Platelet Volume 9.2fl Neutrophils % 65.3% Lymphocytes % 16.6% Monocytes % 14.7% Eosinophils % 0.8% Basophils % 0.6% Nucleated Red Blood Cells % 0.0/100WBC Neutrophils # 5.110^3/ul Lymphocytes # 1.310^3/ul Monocytes # 1.210^3/ul Eosinophils # 0.110^3/ul Basophils # 0.110^3/ul Nucleated Red Blood Cells # 0.010^3/ul Prothrombin Time 13.4Sec Prothrombin Time Ratio 1.0 INR International Normalized Ratio 1.02 Activated Partial Thromboplast Time 42.3Sec Sodium Level 137mmol/L Potassium Level 4.3mmol/L Chloride Level 98mmol/L Carbon Dioxide Level 28mmol/L Anion Gap 15 Blood Urea Nitrogen 6mg/dl Creatinine 0.66mg/dl Glucose Level 208mg/dl Calcium Level 9.4mg/dl Total Bilirubin 0.1mg/dl Direct Bilirubin 0.00mg/dl Indirect Bilirubin 0.1mg/dl Aspartate Amino Transf (AST/SGOT) 11IU/L Alanine Aminotransferase (ALT/SGPT) 22IU/L Alkaline Phosphatase 58IU/L Total Protein 7.3g/dl Albumin 3.6g/dl Globulin 3.70g/dl Albumin/Globulin Ratio 0.97 Lipase 16U/L Urine Color LT. YELLOW Urine Clarity CLEAR Urine pH 5.5 Urine Specific [place] 1.010 Urine Ketones 40 Urine Nitrite NEGATIVE Urine Bilirubin NEGATIVE Urine Urobilinogen 0.2 E.U./dL Urine Leukocyte Esterase 3+ Urine Microscopic RBC 0-2/HPF Urine Microscopic WBC 25-50/HPF Urine Transitional Epithelial Cells OCCASIONAL Urine Bacteria FEW Urine Hemoglobin TRACE Urine Glucose NEGATIVE% Urine Total Protein NEGATIVE Lactic Acid Level 1.4mmol/L Current Medications Medications (Trade) Dose Ordered Sig/Haris Route PRN Reason Start Time Stop Time Status Last Admin Dose Admin Morphine Sulfate (morphine) 4 mg ONCE STAT IV 06/12/16 14:49 06/12/16 14:51 DC 06/12/16 16:16 Sodium Chloride 2450 ml 2,450 ml BOLUS OVER 2 HOURS STAT IV* 06/12/16 16:10 4/28/17 16:18 DC 06/12/16 16:42 Vancomycin HCl 250 ml @ 125 mls/hr ONCE ONCE IVPB 06/12/16 17:00 06/12/16 18:59 06/12/16 18:11 Piperacillin Sod/ Tazobactam Sod (Zosyn 3.375gm/ 100 ml (Pmx)) 100 ml @ 200 mls/hr ONCE STAT IVPB 06/12/16 16:10 06/12/16 16:39 DC 06/12/16 16:42 Morphine Sulfate (morphine) 6 mg ONCE ONCE IV 06/12/16 16:30 06/12/16 16:31 DC Ondansetron HCl (Zofran Inj) 4 mg BRIDGE ORDER PRN IV NAUSEA AND/OR VOMITING 06/12/16 17:00 06/12/16 18:13 DC Acetaminophen (Tylenol Tab) 650 mg ER BRIDGE PRN PO MILD PAIN/FEVER 06/12/16 17:00 06/12/16 18:13 DC Hydromorphone HCl (Dilaudid) 1 mg ONCE STAT IV 06/12/16 17:09 06/12/16 17:10 DC 06/12/16 18:11 IV Flush (NS 3 ml) 3 ml PER PROTOCOL IV 06/12/16 18:30 Ondansetron HCl (Zofran Inj) 4 mg Q6H PRN IV NAUSEA AND/OR VOMITING 06/12/16 18:30 Acetaminophen (Tylenol Tab) 650 mg Q6H PRN PO PAIN LEVEL 1-3 OR FEVER 06/12/16 18:30 Acetaminophen/ Hydrocodone Bitart ([place] (5/325)) 1 tab Q6H PRN PO MODERATE PAIN LEVEL 4-6 06/12/16 18:30 Morphine Sulfate (morphine) 2 mg Q4H PRN IV SEVERE PAIN LEVEL 7-10 06/12/16 18:30 Docusate Sodium (Colace) 100 mg Q12H PRN PO CONSTIPATION 06/12/16 18:30 Magnesium Hydroxide (Milk Of Mag) 30 ml DAILY PRN PO CONSTIPATION 06/12/16 18:30 Sodium Biphosphate/ Sodium Phosphate (Fleet Enema) 133 ml DAILY PRN PA CONSTIPATION 06/12/16 18:30 Pantoprazole (Protonix Tab) 40 mg DAILY@06 PO 06/13/16 06:00 Heparin Sodium (Porcine) 5000 unit 5,000 unit Q12 SC 06/12/16 21:00 Sodium Chloride (1/2 NS) 1,000 ml @ 75 mls/hr [id number] IV 06/12/16 18:06 Lorazepam (Ativan) 0.5 mg Q6H PRN IV ANXIETY 06/12/16 18:30 Albuterol/ Ipratropium 3 ml 3 ml Q4H RESP THERAPY PRN HHN SHORTNESS OF BREATH 06/12/16 18:30 Piperacillin Sod/ Tazobactam Sod (Zosyn 3.375gm/ 100 ml (Pmx)) 100 ml @ 200 mls/hr Q6 IVPB 06/13/16 00:00 Vancomycin HCl (Vanco Iv Per Pharmacy) VANCOMYCIN PER PHARMACY NOTE XX 06/12/16 18:30 UNV Hydralazine HCl (Apresoline) 10 mg Q6H PRN IV ELEVATED BLOOD PRESSURE 06/12/16 18:30 Nitroglycerin (Nitroglycerin (Sl Tab) 0.4 Mg) 1 tab Q5M PRN SL ANGINA 06/12/16 18:30 Insulin Aspart (Novolog Insulin Pen) NOVOLOG *MILD* ALGORI... Q4 SC 06/12/16 21:00 Miscellaneous Information (* Miscellaneous Pharmacy Order) HYPOGLYCEMIA PROTOCOL w... ONCE ONCE XX 06/12/16 18:30 06/12/16 18:31 Miscellaneous Information (* Miscellaneous Pharmacy Order) Discontinue Glyburide, Glipizide,... ONCE ONCE XX 06/12/16 18:30 06/12/16 18:31 Miscellaneous Information (* Miscellaneous Pharmacy Order) Discontinue all previ... ONCE ONCE XX 06/12/16 18:30 06/12/16 18:31 Atorvastatin Calcium (Lipitor) 40 mg QHS PO 06/12/16 21:00 Multivit/Ca Carb/ B Cmplx/FA/Prenat (Monik-Roosevelt) 1 tab DAILY PO 06/13/16 09:00 Miscellaneous Information 1 ea NOTE XX 06/12/16 18:30 Glucose (Glutose) 15 gm Q15M PRN PO DECREASED GLUCOSE 06/12/16 18:30 Glucose (Glutose) 22.5 gm Q15M PRN PO DECREASED GLUCOSE 06/12/16 18:30 Dextrose (D50w Syringe) 25 ml Q15M PRN IV DECREASED GLUCOSE 06/12/16 18:30 Dextrose (D50w Syringe) 50 ml Q15M PRN IV DECREASED GLUCOSE 06/12/16 18:30 Glucagon (Glucagen) 1 mg Q15M PRN IM DECREASED GLUCOSE 06/12/16 18:30 Glucose (Glutose) 15 gm Q15M PRN BUCCAL DECREASED GLUCOSE 06/12/16 18:30 Procedures/MDM Intra-abdominal abscess with colovesicular fistula and tachycardic patient. Patient will obviously need to be admitted for surgical drainage of abscess and surgical repair of fistula. No elevated white count or lactic acidosis to suggest sepsis. Patient was treated with vancomycin and Zosyn and given 30 cc/ kg IV fluid. Pain was treated with morphine and Dilaudid. Spoke with general surgeon on-call, Dr. Silvestre, who agrees to see the patient in consult. He spoke with interventional radiology and would like to intra-abdominal abscess drained. It is requested in order to the CT-guided drainage by IR. Patient is currently comfortable and with his fluid administration his tachycardia has resolved. Also spoke with Dr. Davey will be admitting the patient to medical surgical floor. EKG interpretation: Normal sinus rhythm rate of 86, incomplete right bundle branch block, normal axis, no ST or T-wave changes concerning for acute ischemia. 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 No obstruction, no acute fractures. Departure Diagnosis: Primary Impression: Intra-abdominal abscess Additional Impressions: Fistula, intestinovesical Cellulitis Acute abdominal pain Condition: Serious MARIBELERICH DO Jun 12, 2016 18:29
[2016-06-12] MEDS ORDERED: hydrALAzine 20 MG INJ IV PRN (18:30)
[2016-06-12] MEDS ORDERED: NACL 0.9% 3 ML SYG IV SCH (18:30)
[2016-06-12] MEDS ORDERED: GLUCAGON 1 MG INJ IM PRN (18:30)
[2016-06-12] MEDS ORDERED: ALBUTEROL/IPRATROPIUM (NEB) 3 ML AMP HHN PRN (18:30)
[2016-06-12] MEDS ORDERED: MAGNESIUM HYDROXIDE 30ML CUP PO PRN (18:30)
[2016-06-12] MEDS ORDERED: NA PHOSPHATE/BIPHOS 133 ML ENEMA PR PRN (18:30)
[2016-06-12] MEDS ORDERED: NITROGLYCERIN (SL) 0.4 MG TAB SL PRN (18:30)
[2016-06-12] MEDS ORDERED: DEXTROSE 50% 50 ML SYRINGE IV PRN ×2 (18:30)
[2016-06-12] MEDS ORDERED: VANCOMYCIN IV PER PHARMACY XX SCH (18:30)
[2016-06-12] MEDS ORDERED: DOCUSATE SODIUM 100 MG CAP PO PRN (18:30)
[2016-06-12] MEDS ORDERED: GLUCOSE GEL 15 GRAM TUBE BUCCAL PRN (18:30)
[2016-06-12] MEDS ORDERED: GLUCOSE GEL 15 GRAM TUBE PO PRN ×2 (18:30)
[2016-06-12] MEDS: SOD CHLORIDE 0.45% 1,000 ML IV SCH (18:42)
[2016-06-12 20:18] LABS: INR 1.04; PROTIME 13.6 Sec (12.2-14.2); PT RATIO 1.1
[2016-06-12 20:19] LABS: PARTIAL THROMBOPLASTIN TIME 41.5 Sec (25.0-35.0)
--- NOTE | 2016-06-12 20:49 | HP ---
DATE OF ADMISSION: 06/12/2016 CHIEF COMPLAINT: Left lower quadrant pain. HISTORY OF PRESENT ILLNESS: A 55-year-old male with past medical history of type 2 diabetes, inguin al hernia, essential hypertension and high cholesterol, who presents today because he notices his he rnia getting bigger and more red. He was told about 4 or 5 days ago that he has a hernia that has b een present for some time. He was not aware and thought that he was constipated for a long time and that is why he had a bulge in his inguinal area. In any event, there is overlying erythema there a nd he decided to come into the ER today. Denies any headaches, dizziness or loss of consciousness. No upper or lower GI bleeding. No chest pain or shortness of breath. No fevers or chills. No alfredo nges in his bowel movements. When he came in, he had an imaging study performed that did show heavy proximal sigmoid colon inflammation, with associated fistulization to the subcutaneous adipose tiss ues of the left anterior pelvis, as well as fistulization to the urinary bladder. At the subcutaneo us aspect of the fistula, there is a 7 x 6.5 x 5-cm air/fluid collection, consistent with abscess. There is also a small 1.7 x 2 x 1.3 pericolonic abscess intraperitoneally, as well. A general surge on was called in the ER to come evaluate the patient, which is still pending. In the meantime, CT-g uided drainage has been ordered, as well. The patient was last here at our hospital in 02/27-2016; at that time, he was treated for a scrotal abscess, which was drained at that time by urology team. PAST MEDICAL HISTORY: As stated above. ALLERGIES: NO KNOWN DRUG ALLERGIES. MEDICATIONS AT HOME 1. Atorvastatin 40 mg at bedtime. 2. Benazepril 10 mg daily. 3. Tylenol 500 mg q.4h. p.r.n. 4. Aspirin 81 mg daily. 5. Ibuprofen 200 mg q.i.d. 6. Glimepiride 1 mg b.i.d. 7. Metformin 1000 mg b.i.d. 8. Monik-Roosevelt 1 tab daily. PAST SURGICAL HISTORY: Again, scrotal I and D in the past. SOCIAL HISTORY: Occasional alcohol abuse; no smoking, no IV drug abuse. FAMILY HISTORY: Noncontributory. PHYSICAL EXAMINATION VITAL SIGNS: T-max 98.1, pulse 120, respirations 20, blood pressure is 147/86, saturating at 99% ro om air. GENERAL: The patient is lying in bed, answering questions appropriately, in no acute distress. HEENT: Pupils equal, round, reactive to light. Extraocular muscles intact. NECK: Supple; no thyromegaly. LUNGS: Clear to auscultation bilaterally. CARDIOVASCULAR: S1, S2 heard, a tachycardic heart rate. No rubs or gallops. ABDOMEN: Some tenderness to palpation in the left lower quadrant. There is also some pelvic tender ness, as well, in the left-sided area, but no rebound or guarding. There is some overlying erythema with ____ cellulitis in the left pelvis as well. Normal bowel sounds. MUSCULOSKELETAL: No lower extremity edema bilaterally. NEUROLOGIC: No focal deficits. LABORATORIES: CBC is normal. The comprehensive metabolic panel is normal. The lipase is normal. Free T4 is a little high at 2.19. COMPUTED TOMOGRAPHY: We mentioned the CT scan results above. ULTRASOUND: He also had a testicular ultrasound performed that shows a 6 x 2.3 x 3 cm subcutaneous focus in the left inguinal region, may represent phlegmon developing abscess. ASSESSMENT AND PLAN A 55-year-old male coming in with left lower quadrant pain with signs of a left inguinal hernia, red ness and intraabdominal abscesses, as well as fistula, intestinovesical, and cellulitis: 2. Left lower quadrant pain. Again, we will give him pain control medications, IV fluids, check TS H, A1c, lipid panel. We will put him on broad-spectrum antibiotics, as well. Get a general surgery consult, which has already been ordered. Planning for a CT-guided drainage of the intra-abdominal abscesses, as well. Send for cultures. Tylenol p.r.n. pain and fevers. Antibiotics hopefully will treat the rest of the infection, as well as the cellulitis. Need to discuss with surgery team abou t possible treatments for the intestinovesical fistula as well. 2. Type 2 diabetes. Check A1c. Put him on sliding-scale insulin. 3. Essential hypertension. Continue current blood pressure medicines, as well. 4. High cholesterol. Check lipid level. Continue statin. 5. Gastrointestinal prophylaxis, PPI. 7. Deep venous thrombosis prophylaxis, Heparin subcutaneously. Dictated By: YISSEL CURRIE Conf#: [id number] DID#: [id number]
[2016-06-12] MEDS: INSULIN ASPART [NOVOLOG] 3 ML PEN SC SCH (21:00)
[2016-06-12] MEDS: ATORVASTATIN 40 MG TAB PO SCH (21:00)
[2016-06-12] MEDS: HEPARIN 5,000 UNIT/0.5 ML VIAL SC SCH (21:07)
[2016-06-12] MEDS: morphine 2 MG INJ IV PRN (21:07)
[2016-06-12] MEDS: HYDROCODONE/APAP (5/325) TAB PO PRN (23:39)
[2016-06-12] MEDS: PIPER-TAZO 3.375 GM IV (PMX) 100 ML IVPB SCH (23:40)
[2016-06-13] MEDS: LORAZEPAM 2 MG INJ IV PRN
[2016-06-13] MEDS: INSULIN ASPART [NOVOLOG] 3 ML PEN SC SCH ×6 (01:00→21:01)
[2016-06-13] MEDS ORDERED: VANCOMYCIN 1.25 GM in SOD CHLORIDE 0.9% 250 ML IVPB SCH (03:00)
[2016-06-13 04:42] VITALS: TEMP 98.9
[2016-06-13 05:54] LABS: ADD SCAN DIFF NO
[2016-06-13 05:56] LABS: BASOPHIL # 0.1 10^3/ul (0.0-0.1); BASOPHILS % 0.6 % (0.0-2.0); EOSINOPHILS # 0.1 10^3/ul (0.0-0.5); EOSINOPHILS % 1.4 % (0.0-7.0); HEMATOCRIT 46.9 % (42.0-52.0); HEMOGLOBIN 15.4 g/dl (14.0-18.0); LYMPHOCYTES # 1.8 10^3/ul (0.8-2.9); LYMPHOCYTES % 20.2 % (15.0-51.0); MEAN CORPUSCULAR HEMOGLOBIN 30.3 pg (29.0-33.0); MEAN CORPUSCULAR HGB CONC 32.8 g/dl (32.0-37.0); MEAN CORPUSCULAR VOLUME 92.1 fl (82.0-101.0); MEAN PLATELET VOLUME 9.2 fl (7.4-10.4); MONOCYTE # 1.2 10^3/ul (0.3-0.9); MONOCYTES % 13.2 % (0.0-11.0); NEUTROPHIL # 5.5 10^3/ul (1.6-7.5); NEUTROPHILS % 63.2 % (39.0-77.0); PLATELET COUNT 392 10^3/UL (140-415); RED BLOOD COUNT 5.09 10^6/ul (4.70-6.10); RED CELL DISTRIBUTION WIDTH 14.6 % (11.5-14.5); WHITE BLOOD COUNT 8.8 10^3/ul (4.8-10.8)
--- NOTE | 2016-06-13 06:05 | CONS ---
DATE OF ADMISSION: 06/12/2016 DATE OF CONSULTATION: 06/12/2016 HISTORY OF PRESENT ILLNESS: Mr. Coyne is a 55-year-old male with a 3-month history of lower abdom inal pain. He was told that he had a hernia to his left groin, but he developed overlying erythema and presented to the ER. He also had a testicular abscess which was drained back in February. The p atedith has been having bowel movements and has had episodes of pneumaturia over the past few months. PAST MEDICAL HISTORY: Significant for diabetes and high cholesterol. MEDICATIONS: 1. Ibuprofen. 2. Acetaminophen. 3. Aspirin. 4. Atorvastatin. 5. Metformin. 6. Glimepiride. 7. Benazepril. PAST SURGICAL HISTORY: I and D of the left scrotal abscess. ALLERGIES: NO KNOWN DRUG ALLERGIES. SOCIAL HISTORY: Denies drinking, drug use or smoking. PHYSICAL EXAMINATION: GENERAL: He is a well-developed, obese male in no apparent distress. VITAL SIGNS: He is afebrile. Vital signs stable. CHEST: Clear to auscultation bilaterally. HEART: Regular rhythm. ABDOMEN: Soft, nondistended but in his left groin, there is an erythematous, tender area consistent with a cellulitis. The left groin is also chappell than the right. LABORATORY DATA: Reveal a white count of 8, hematocrit of 45 and platelets of 390. Sodium 137, pot assium 4.3, chloride 98, CO2 28, BUN and creatinine 6 and 0.6 and glucose of 208. A CT of his abdomen and pelvis revealed heavy proximal sigmoid colon inflammation with fistulization into the subcutaneous adipose tissue of the left ____as well as to urinary bladder. The subcu fistu la shows a 7 x 6.5 air fluid collection with an abscess. ASSESSMENT AND PLAN: Mr. Coyne is a 55-year-old male with chronic fistulizing diverticulitis. 1. IV fluids, antibiotics, n.p.o. 2. Discussed with IR drainage of subcutaneous abscess tomorrow. 3. Would recommend conservative treatment for now and then 4 in 6 weeks should undergo a laparoscop ic sigmoid resection. Dictated By: KARL HINDS/NTS Conf#: [id number] DID#: [id number]
[2016-06-13 06:11] VITALS: Ht 162.6 cm; Wt 79.0 kg
[2016-06-13 06:13] VITALS: BP 152/84; RESP 20
[2016-06-13] MEDS: morphine 2 MG INJ IV PRN ×4 (06:23→21:03)
[2016-06-13] MEDS: PANTOPRAZOLE (EC) 40 MG TAB PO SCH (06:23)
[2016-06-13] MEDS: PIPER-TAZO 3.375 GM IV (PMX) 100 ML IVPB SCH ×3 (06:24→17:05)
[2016-06-13 06:33] LABS: CALCIUM 9.3 mg/dl (8.4-10.2); CREATININE 0.58 mg/dl (0.61-1.24); MAGNESIUM 2.1 mg/dl (1.7-2.5); PHOSPHORUS 5.1 mg/dl (2.5-4.9); POTASSIUM 4.5 mmol/L (3.5-5.1)
[2016-06-13 06:36] LABS: CHOL/HDL RATIO 6.4 RATIO
[2016-06-13] MEDS: SOD CHLORIDE 0.45% 1,000 ML IV SCH ×2 (06:57→20:46)
[2016-06-13 07:04] LABS: THYROID STIMULATING HORMONE 1.05 MIU/L (0.465-4.680)
--- NOTE | 2016-06-13 07:58 | PN ---
DATE: 06/13/2016 SUBJECTIVE: Mr. Coyne is hospital day #1 for a fistulizing diverticulitis. Patient is without co mplaints. He has been afebrile. OBJECTIVE: VITAL SIGNS: Stable. ABDOMEN: Exam is unchanged. LABORATORY DATA: Today reveal white count of 9, hematocrit of 47, platelets of 392. ASSESSMENT AND PLAN: Mr. Coyne is a 55-year-old male with fistulizing diverticulitis. 1. He is to go for IR drainage of his subcutaneous abscess today. 2. We will advance to clears after drainage. 3. Likely can be discharged home after weekend, on oral antibiotics, and follow up with me in the o ffice in 2 weeks. 4. Discussed elective sigmoid resection in 4-6 weeks. Dictated By: KARL HINDS/MARLENA Conf#: [id number] DID#: [id number]
[2016-06-13 08:21] VITALS: BP 115/63; RESP 16
[2016-06-13] MEDS: MULTIVIT/CA CARB/B CMPLX/FA TAB PO SCH (08:37)
[2016-06-13] MEDS: HEPARIN 5,000 UNIT/0.5 ML VIAL SC SCH ×2 (08:37→21:19)
--- NOTE | 2016-06-13 10:38 | PN ---
Date/Time of Note Date/Time of Note DATE: 06/13/16 TIME: 10:35 Assessment/Plan VTE Prophylaxis VTE Prophylaxis Intervention: heparin Lines/Catheters IV C[facility]ter Type (from [facility] Peripheral IV Urinary Cath still in place: No Assessment/Plan Chief Complaint/Hosp Course ASSESSMENT AND PLAN: 55-year-old male coming in with left lower quadrant pain with signs of a left inguinal hernia, redness and intraabdominal abscesses, as well as fistula, intestinovesical, and cellulitis: 2. Left lower quadrant pain - sec to above - pain control medications, IV fluids,f/uTSH, A1c, lipid panel. - broad-spectrum antibiotics, as well. - per general surgery consult, planning for a CT-guided drainage of the intra -abdominal abscesses, as well. Send for cultures. - Tylenol p.r.n. pain and fevers. - possible sigmoid resection surgery in 4-6 wks as outpt, after 2 wks of abx tx. 2. Type 2 diabetes - f/u A1c. Put him on sliding-scale insulin. 3. Essential hypertension. Continue current blood pressure medicines, as well. 4. High cholesterol - f/u lipid level. Continue statin. 5. Gastrointestinal prophylaxis, PPI. 7. Deep venous thrombosis prophylaxis, Heparin subcutaneously. Problems: Subjective 24 Hr Interval Summary Free Text/Dictation Pt seen by surgery team, awaiting IR procedure for later today. Exam/Review of Systems Vital Signs Vitals Vital Signs Date Time Temp Pulse Resp B/P Pulse Ox O2 Delivery O2 Flow Rate FiO2 06/13/16 08:21 98.7 75 16 115/63 96 06/13/16 04:42 Room Air Intake and Output 06/12/16 06/12/16 06/13/16 15:00 23:00 07:00 Intake Total 1100 ml Output Total 1200 ml Balance -100 ml Exam GENERAL: The patient is lying in bed, answering questions appropriately, in no acute distress. HEENT: Pupils equal, round, reactive to light. Extraocular muscles intact. NECK: Supple; no thyromegaly. LUNGS: Clear to auscultation bilaterally. CARDIOVASCULAR: S1, S2 heard, a tachycardic heart rate. No rubs or gallops. ABDOMEN: Some tenderness to palpation in the left lower quadrant. There is also some pelvic tenderness, as well, in the left-sided area, but no rebound or guarding. There is some overlying erythema with cellulitis in the left pelvis as well. Normal bowel sounds. MUSCULOSKELETAL: No lower extremity edema bilaterally. NEUROLOGIC: No focal deficits. Results Result Diagram: 06/13/1619 06/13/16518 Results 24 hrs Laboratory Tests Test 06/12/16 15:00 06/12/16 15:11 06/12/16 16:20 06/12/16 18:35 White Blood Count 7.9 Red Blood Count 4.96 Hemoglobin 15.4 Hematocrit 45.1 Mean Corpuscular Volume 90.9 Mean Corpuscular Hemoglobin 31.0 Mean Corpuscular Hemoglobin Concent 34.1 Red Cell Distribution Width 14.4 Platelet Count 390 Mean Platelet Volume 9.2 Neutrophils % 65.3 Lymphocytes % 16.6 Monocytes % 14.7 H Eosinophils % 0.8 Basophils % 0.6 Nucleated Red Blood Cells % 0.0 Neutrophils # 5.1 Lymphocytes # 1.3 Monocytes # 1.2 H Eosinophils # 0.1 Basophils # 0.1 Nucleated Red Blood Cells # 0.0 Prothrombin Time 13.4 Prothrombin Time Ratio 1.0 INR International Normalized Ratio 1.02 Activated Partial Thromboplast Time 42.3 H Sodium Level 137 Potassium Level 4.3 Chloride Level 98 Carbon Dioxide Level 28 Anion Gap 15 Blood Urea Nitrogen 6 L Creatinine 0.66 Glucose Level 208 Calcium Level 9.4 Total Bilirubin 0.1 L Direct Bilirubin 0.00 Indirect Bilirubin 0.1 Aspartate Amino Transf (AST/SGOT) 11 L Alanine Aminotransferase (ALT/SGPT) 22 Alkaline Phosphatase 58 Total Protein 7.3 Albumin 3.6 Globulin 3.70 H Albumin/Globulin Ratio 0.97 Lipase 16 L Free Thyroxine 2.19 H Urine Color LT. YELLOW Urine Clarity CLEAR Urine pH 5.5 Urine Specific [place] 1.010 Urine Ketones 40 Urine Nitrite NEGATIVE Urine Bilirubin NEGATIVE Urine Urobilinogen 0.2 E.U./dL Urine Leukocyte Esterase 3+ H Urine Microscopic RBC 0-2 Urine Microscopic WBC 25-50 Urine Transitional Epithelial Cells OCCASIONAL Urine Bacteria FEW Urine Hemoglobin TRACE Urine Glucose NEGATIVE Urine Total Protein NEGATIVE Lactic Acid Level 1.4 1.6 Test 06/12/16 19:50 06/12/16 21:04 06/13/16 01:52 06/13/16 05:19 Prothrombin Time 13.6 Prothrombin Time Ratio 1.1 INR International Normalized Ratio 1.04 Activated Partial Thromboplast Time 41.5 H Lactic Acid Level 1.2 Bedside Glucose 132 154 White Blood Count 8.8 Red Blood Count 5.09 Hemoglobin 15.4 Hematocrit 46.9 Mean Corpuscular Volume 92.1 Mean Corpuscular Hemoglobin 30.3 Mean Corpuscular Hemoglobin Concent 32.8 Red Cell Distribution Width 14.6 H Platelet Count 392 Mean Platelet Volume 9.2 Neutrophils % 63.2 Lymphocytes % 20.2 Monocytes % 13.2 H Eosinophils % 1.4 Basophils % 0.6 Nucleated Red Blood Cells % 0.0 Neutrophils # 5.5 Lymphocytes # 1.8 Monocytes # 1.2 H Eosinophils # 0.1 Basophils # 0.1 Nucleated Red Blood Cells # 0.0 Sodium Level 136 Potassium Level 4.5 Chloride Level 102 Carbon Dioxide Level 28 Anion Gap 11 Blood Urea Nitrogen 6 L Creatinine 0.58 L Glucose Level 152 Hemoglobin A1c 8.0 H Calcium Level 9.3 Phosphorus Level 5.1 H Magnesium Level 2.1 Triglycerides Level 166 H Cholesterol Level 181 LDL Cholesterol, Calculated 120 HDL Cholesterol 28 Cholesterol/HDL Ratio 6.4 Thyroid Stimulating Hormone (TSH) 1.050 Test 06/13/16 05:45 06/13/16 08:55 Bedside Glucose 130 137 Medications Medications Current Medications Ondansetron HCl (Zofran Inj) 4 mg Q6H PRN IV NAUSEA AND/OR VOMITING; Start at 18:30 Acetaminophen (Tylenol Tab) 650 mg Q6H PRN PO PAIN LEVEL 1-3 OR FEVER; Start at 18:30 Acetaminophen/ Hydrocodone Bitart ([place] (5/325)) 1 tab Q6H PRN PO MODERATE PAIN LEVEL 4-6 Last administered on 06/12/16 23:39; Admin Dose 1 TAB; Start at 18:30 Morphine Sulfate (morphine) 2 mg Q4H PRN IV SEVERE PAIN LEVEL 7-10 Last administered on 06/13/16 06:23; Admin Dose 2 MG; Start 06/12/16 at 18:30 Docusate Sodium (Colace) 100 mg Q12H PRN PO CONSTIPATION; Start 06/12/16 at 18: 30 Magnesium Hydroxide (Milk Of Mag) 30 ml DAILY PRN PO CONSTIPATION; Start at 18:30 Sodium Biphosphate/ Sodium Phosphate (Fleet Enema) 133 ml DAILY PRN [place] CONSTIPATION; Start 06/12/16 at 18:30 Pantoprazole (Protonix Tab) 40 mg DAILY@06 PO Last administered on 06/13/16 06 :23; Admin Dose 40 MG; Start 06/13/16 at 06:00 Heparin Sodium (Porcine) 5000 unit 5,000 unit Q12 SC Last administered on 21:07; Admin Dose 5,000 UNIT; Start 06/12/16 at 21:00 Sodium Chloride (1/2 NS) 1,000 ml @ 75 mls/hr [id number] IV Last administered on 06/12/16 18:42; Admin Dose 75 MLS/HR; Start 06/12/16 at 18:06 Lorazepam 0.5 mg 0.5 mg Q6H PRN IV ANXIETY Last administered on 06/13/16 00:00 ; Admin Dose 0.5 MG; Start 06/12/16 at 18:30 Piperacillin Sod/ Tazobactam Sod (Zosyn 3.375gm/ 100 ml (Pmx)) 100 ml @ 200 mls /hr Q6 IVPB Last administered on 06/13/16 06:24; Admin Dose 200 MLS/HR; Start 06/13/16 at 00:00 Vancomycin HCl (Vanco Iv Per Pharmacy) VANCOMYCIN PER PHARMACY NOTE XX ; Start 06/12/16 at 18:30 Hydralazine HCl (Apresoline) 10 mg Q6H PRN IV ELEVATED BLOOD PRESSURE; Start at 18:30 Nitroglycerin (Nitroglycerin (Sl Tab) 0.4 Mg) 1 tab Q5M PRN SL ANGINA; Start at 18:30 Insulin Aspart (Novolog Insulin Pen) NOVOLOG *MILD* ALGORI... Q4 SC ; Start at 21:00 Atorvastatin Calcium (Lipitor) 40 mg QHS PO ; Start 06/12/16 at 21:00 Multivit/Ca Carb/ B Cmplx/FA/Prenat (Monik-Roosevelt) 1 tab DAILY PO ; Start 06/13/16 at 09:00 Miscellaneous Information 1 ea NOTE XX ; Start 06/12/16 at 18:30 Glucose (Glutose) 15 gm Q15M PRN PO DECREASED GLUCOSE; Start 06/12/16 at 18:30 Glucose (Glutose) 22.5 gm Q15M PRN PO DECREASED GLUCOSE; Start 06/12/16 at 18: 30 Dextrose (D50w Syringe) 25 ml Q15M PRN IV DECREASED GLUCOSE; Start 06/12/16 at 18:30 Dextrose (D50w Syringe) 50 ml Q15M PRN IV DECREASED GLUCOSE; Start 06/12/16 at 18:30 Glucagon (Glucagen) 1 mg Q15M PRN IM DECREASED GLUCOSE; Start 06/12/16 at 18:30 Glucose 15 gm 15 gm Q15M PRN BUCCAL DECREASED GLUCOSE; Start 06/12/16 at 18:30 Vancomycin HCl/ Sodium Chloride (Vancocin/NS) 250 ml @ 83.333 mls/ hr Q12H IVPB ; Start 06/13/16 at 15:00 Miscellaneous Information (*Rx Drug Level Order Reminder*) VANCOMYCIN TROUGH AT 1400 ONCE ONCE XX ; Start 06/14/16 at 14:00; Stop 06/14/16 at 14:01 YISSEL RESENDIZ Jun 13, 2016 10:38
[2016-06-13] MEDS ORDERED: MIDAZOLAM 1 MG/ML 2 ML INJ ONE (13:11)
[2016-06-13] MEDS ORDERED: LIDOCAINE 1% (MDV) 20 ML INJ ONE (13:11)
[2016-06-13] MEDS ORDERED: DIPHENHYDRAMINE 50 MG INJ ONE (13:11)
[2016-06-13] MEDS ORDERED: FENTAnyl 50 MCG/ML VIAL ONE (13:12)
[2016-06-13 13:45] VITALS: BP 142/82; PULSE 78; RESP 20
--- NOTE | 2016-06-13 14:56 | RADRPT ---
PROCEDURE: CT guided pelvic abscess drainage. CLINICAL INDICATION: Pelvic pain. Right inguinal region abscess. TECHNIQUE: Informed consent was obtained. The procedure, risks, benefits, complications and alternatives were explained to the patient. Risks including bleeding and infection were explained. The patient underst ood and was willing to proceed. A procedural pause was performed. The patient's name, date of , and procedure to be performed were verified. One or more of the following dose reduction techniq ues were used: Automated exposure control, adjustment of the mA and/or kV according to patient size, use of iterative reconstruction technique. Using local anesthetic, sterile technique and CT guidance, an 8-Lao multipurpose drainage cathet er was advanced into the fluid collection in the left inguinal region with trocar technique. The tr ocar was removed. Additional scanning was performed confirming position. The catheter was then sut ured to the patient's skin with 2-0 silk. Approximately 10 ml of purulent fluid was aspirated. The catheter was connected to a drainage bag. A dressing was applied. The patient tolerated procedure well. COMPARISON: CT scan of the abdomen and pelvis dated 06/12/2016. FINDINGS: Final images demonstrate the drainage catheter in satisfactory position within the fluid collection. IMPRESSION: 1. Successful CT guided pelvic abscess drainage. RPTAT: QQ .Tl Fraser MD, MD Date Time Electronically viewed and signed by .Tl Fraser MD, on 06/13/2016 14:55 .R/
[2016-06-13] MEDS: VANCOMYCIN 1.5 GM in SOD CHLORIDE 0.9% 250 ML IVPB SCH (15:46)
[2016-06-13] MEDS: oxyCODONE 5 MG TAB PO PRN ×2 (18:29→22:24)
[2016-06-13] MEDS: INSULIN GLARGINE [LANtus] 3 ML PEN SC SCH (20:00)
[2016-06-13 20:23] VITALS: BP 130/81; RESP 18
[2016-06-13] MEDS: ATORVASTATIN 40 MG TAB PO SCH (20:52)
[2016-06-13] MEDS ORDERED: oxyCODONE (CR) 10 MG TAB [oxyCONTIN] PO SCH (21:00)
[2016-06-13] MEDS ORDERED: GLUCAGON 1 MG INJ IM PRN (23:45)
[2016-06-13] MEDS ORDERED: GLUCOSE GEL 15 GRAM TUBE PO PRN ×2 (23:45)
[2016-06-13] MEDS ORDERED: DEXTROSE 50% 50 ML SYRINGE IV PRN ×2 (23:45)
[2016-06-13] MEDS ORDERED: GLUCOSE GEL 15 GRAM TUBE BUCCAL PRN (23:45)
[2016-06-14] MEDS: PIPER-TAZO 3.375 GM IV (PMX) 100 ML IVPB SCH ×5 (01:12→23:58)
[2016-06-14] MEDS: morphine 2 MG INJ IV PRN (01:24)
[2016-06-14] MEDS: SOD CHLORIDE 0.45% 1,000 ML IV SCH ×3 (01:24→23:26)
[2016-06-14] MEDS ORDERED: ACCU-CHEK XX SCH (02:00)
[2016-06-14] MEDS: oxyCODONE 5 MG TAB PO PRN ×4 (02:31→20:26)
[2016-06-14] MEDS: VANCOMYCIN 1.5 GM in SOD CHLORIDE 0.9% 250 ML IVPB SCH ×2 (02:32→15:51)
[2016-06-14] MEDS: ACCU-CHEK XX SCH (02:36)
[2016-06-14] MEDS: INSULIN GLARGINE [LANtus] 3 ML PEN SC SCH ×2 (02:47→20:20)
[2016-06-14] MEDS: PANTOPRAZOLE (EC) 40 MG TAB PO SCH (06:28)
[2016-06-14 07:38] VITALS: BP 110/70; RESP 18
[2016-06-14] MEDS: MULTIVIT/CA CARB/B CMPLX/FA TAB PO SCH (07:51)
[2016-06-14] MEDS: INSULIN ASPART [NOVOLOG] 3 ML PEN SC SCH ×4 (07:57→20:21)
[2016-06-14] MEDS: HEPARIN 5,000 UNIT/0.5 ML VIAL SC SCH ×2 (07:57→20:20)
[2016-06-14] MEDS: HYDROCODONE/APAP (5/325) TAB PO PRN (08:13)
[2016-06-14 08:27] LABS: ADD SCAN DIFF NO
[2016-06-14 08:35] LABS: BASOPHIL # 0.1 10^3/ul (0.0-0.1); BASOPHILS % 0.7 % (0.0-2.0); EOSINOPHILS # 0.1 10^3/ul (0.0-0.5); EOSINOPHILS % 2.1 % (0.0-7.0); HEMATOCRIT 45.4 % (42.0-52.0); LYMPHOCYTES # 1.5 10^3/ul (0.8-2.9); LYMPHOCYTES % 22.8 % (15.0-51.0); MEAN CORPUSCULAR HEMOGLOBIN 30.4 pg (29.0-33.0); MEAN CORPUSCULAR VOLUME 91.9 fl (82.0-101.0); MEAN PLATELET VOLUME 9.3 fl (7.4-10.4); MONOCYTE # 0.8 10^3/ul (0.3-0.9); MONOCYTES % 11.5 % (0.0-11.0); NEUTROPHILS % 59.6 % (39.0-77.0); PLATELET COUNT 399 10^3/UL (140-415); RED BLOOD COUNT 4.94 10^6/ul (4.70-6.10); RED CELL DISTRIBUTION WIDTH 14.5 % (11.5-14.5); WHITE BLOOD COUNT 6.7 10^3/ul (4.8-10.8)
[2016-06-14 08:42] LABS: POTASSIUM 4.1 mmol/L (3.5-5.1)
[2016-06-14 08:45] LABS: CREATININE 0.74 mg/dl (0.61-1.24)
[2016-06-14 08:46] LABS: CALCIUM 9.2 mg/dl (8.4-10.2)
--- NOTE | 2016-06-14 09:35 | PN ---
Date/Time of Note Date/Time of Note DATE: 06/14/16 TIME: 09:30 Assessment/Plan VTE Prophylaxis VTE Prophylaxis Intervention: heparin Lines/Catheters IV [facility] Peripheral IV Urinary Cath still in place: No Assessment/Plan Chief Complaint/Hosp Course ASSESSMENT AND PLAN: 55-year-old male coming in with left lower quadrant pain with signs of a left inguinal hernia, redness and intraabdominal abscesses, as well as fistula, intestinovesical, and cellulitis: 2. Left lower quadrant pain - sec to above - s/p CT guided drainage. - pain control medications, IV fluids - broad-spectrum antibiotics, as well - will also get ID consult (IV vs PO abx question) - f/u cultures. - Tylenol p.r.n. pain and fevers. - possible sigmoid resection surgery in 4-6 wks as outpt, after 2 wks of abx tx. 2. Type 2 diabetes - sliding-scale insulin. 3. Essential hypertension. Continue current blood pressure medicines, as well. 4. High cholesterol - Continue statin. 5. Gastrointestinal prophylaxis, PPI. 7. Deep venous thrombosis prophylaxis, Heparin subcutaneously. Problems: Subjective 24 Hr Interval Summary Free Text/Dictation Pt had IR drainage performed yesterday, drain in place. No acute events overnight. Exam/Review of Systems Vital Signs Vitals Vital Signs Date Time Temp Pulse Resp B/P Pulse Ox O2 Delivery O2 Flow Rate FiO2 06/14/16 07:38 98.1 72 18 110/70 93 06/13/16 14:40 Nasal Cannula 2 Intake and Output 06/13/16 06/13/16 06/14/16 15:00 23:00 07:00 Intake Total 830 ml 1210 ml Output Total 25 ml 20 ml Balance -25 ml 810 ml 1210 ml Exam GENERAL: The patient is lying in bed, answering questions appropriately, in no acute distress. HEENT: Pupils equal, round, reactive to light. Extraocular muscles intact. NECK: Supple; no thyromegaly. LUNGS: Clear to auscultation bilaterally. CARDIOVASCULAR: S1, S2 heard, RRR, No rubs or gallops. ABDOMEN: Some tenderness to palpation in the left lower quadrant. There is also some pelvic tenderness, as well, in the left-sided area, but no rebound or guarding. There is some overlying erythema with cellulitis in the left pelvis as well. Normal bowel sounds. Drain in place. MUSCULOSKELETAL: No lower extremity edema bilaterally. NEUROLOGIC: No focal deficits. Results Result Diagram: 06/14/16 0745 06/14/16 0745 Results 24 hrs Laboratory Tests Test 06/13/16 13:06 06/13/16 17:09 06/13/16 20:55 06/14/16 02:36 Bedside Glucose 120 180 232 H 199 Test 06/14/16 07:45 06/14/16 07:50 White Blood Count 6.7 # Red Blood Count 4.94 Hemoglobin 15.0 Hematocrit 45.4 Mean Corpuscular Volume 91.9 Mean Corpuscular Hemoglobin 30.4 Mean Corpuscular Hemoglobin Concent 33.0 Red Cell Distribution Width 14.5 Platelet Count 399 Mean Platelet Volume 9.3 Neutrophils % 59.6 Lymphocytes % 22.8 Monocytes % 11.5 H Eosinophils % 2.1 Basophils % 0.7 Nucleated Red Blood Cells % 0.0 Neutrophils # 4.0 Lymphocytes # 1.5 Monocytes # 0.8 Eosinophils # 0.1 Basophils # 0.1 Nucleated Red Blood Cells # 0.0 Sodium Level 137 Potassium Level 4.1 Chloride Level 100 Carbon Dioxide Level 26 Anion Gap 15 Blood Urea Nitrogen 8 Creatinine 0.74 Glucose Level 165 Calcium Level 9.2 Bedside Glucose 130 Medications Medications Current Medications Ondansetron HCl (Zofran Inj) 4 mg Q6H PRN IV NAUSEA AND/OR VOMITING; Start at 18:30 Acetaminophen (Tylenol Tab) 650 mg Q6H PRN PO PAIN LEVEL 1-3 OR FEVER; Start at 18:30 Acetaminophen/ Hydrocodone Bitart ([place] (5/325)) 1 tab Q6H PRN PO MODERATE PAIN LEVEL 4-6 Last administered on 06/14/16 08:13; Admin Dose 1 TAB; Start at 18:30 Morphine Sulfate (morphine) 2 mg Q4H PRN IV SEVERE PAIN LEVEL 7-10 Last administered on 06/14/16 01:24; Admin Dose 2 MG; Start 06/12/16 at 18:30 Docusate Sodium (Colace) 100 mg Q12H PRN PO CONSTIPATION Last administered on 07:51; Admin Dose 100 MG; Start 06/12/16 at 18:30 Magnesium Hydroxide (Milk Of Mag) 30 ml DAILY PRN PO CONSTIPATION; Start at 18:30 Sodium Biphosphate/ Sodium Phosphate (Fleet Enema) 133 ml DAILY PRN [place] CONSTIPATION; Start 06/12/16 at 18:30 Pantoprazole (Protonix Tab) 40 mg DAILY@06 PO Last administered on 06/14/16 06 :28; Admin Dose 40 MG; Start 06/13/16 at 06:00 Heparin Sodium (Porcine) 5000 unit 5,000 unit Q12 SC Last administered on 07:57; Admin Dose 5,000 UNIT; Start 06/12/16 at 21:00 Sodium Chloride (1/2 NS) 1,000 ml @ 75 mls/hr [id number] IV Last administered on 06/14/16 01:24; Admin Dose 75 MLS/HR; Start 06/12/16 at 18:06 Lorazepam 0.5 mg 0.5 mg Q6H PRN IV ANXIETY Last administered on 06/13/16 00:00 ; Admin Dose 0.5 MG; Start 06/12/16 at 18:30 Piperacillin Sod/ Tazobactam Sod (Zosyn 3.375gm/ 100 ml (Pmx)) 100 ml @ 200 mls /hr Q6 IVPB Last administered on 06/14/16 06:27; Admin Dose 200 MLS/HR; Start 06/13/16 at 00:00 Vancomycin HCl (Vanco Iv Per Pharmacy) VANCOMYCIN PER PHARMACY NOTE XX ; Start 06/12/16 at 18:30 Hydralazine HCl (Apresoline) 10 mg Q6H PRN IV ELEVATED BLOOD PRESSURE; Start at 18:30 Nitroglycerin (Nitroglycerin (Sl Tab) 0.4 Mg) 1 tab Q5M PRN SL ANGINA; Start at 18:30 Atorvastatin Calcium (Lipitor) 40 mg QHS PO ; Start 06/12/16 at 21:00 Multivit/Ca Carb/ B Cmplx/FA/Prenat (Monik-[place]) 1 tab DAILY PO Last administered on 06/14/16 07:51; Admin Dose 1 TAB; Start 06/13/16 at 09:00 Miscellaneous Information 1 ea NOTE XX ; Start 06/12/16 at 18:30 Glucose (Glutose) 15 gm Q15M PRN PO DECREASED GLUCOSE; Start 06/12/16 at 18:30 Glucose (Glutose) 22.5 gm Q15M PRN PO DECREASED GLUCOSE; Start 06/12/16 at 18: 30 Dextrose (D50w Syringe) 25 ml Q15M PRN IV DECREASED GLUCOSE; Start 06/12/16 at 18:30 Dextrose (D50w Syringe) 50 ml Q15M PRN IV DECREASED GLUCOSE; Start 06/12/16 at 18:30 Glucagon (Glucagen) 1 mg Q15M PRN IM DECREASED GLUCOSE; Start 06/12/16 at 18:30 Glucose 15 gm 15 gm Q15M PRN BUCCAL DECREASED GLUCOSE; Start 06/12/16 at 18:30 Vancomycin HCl/ Sodium Chloride (Vancocin/NS) 250 ml @ 83.333 mls/ hr Q12H IVPB Last administered on 06/14/16 02:32; Admin Dose 83.333 MLS/HR; Start at 15:00 Miscellaneous Information (*Rx Drug Level Order Reminder*) VANCOMYCIN TROUGH AT 1400 ONCE ONCE XX ; Start 06/14/16 at 14:00; Stop 06/14/16 at 14:01 Oxycodone HCl (Roxicodone) 5 mg Q4H PRN PO SEVERE PAIN Last administered on 06:28; Admin Dose 5 MG; Start 06/13/16 at 17:00 Insulin Glargine (Lantus) 10 unit DAILY@20 SC Last administered on 06/14/16 02 :47; Admin Dose 10 UNIT; Start 06/13/16 at 20:00 Diagnostic Test (Pha) (Accu-Chek) 1 ea 02 XX Last administered on 06/14/16 02: 36; Admin Dose 1 EA; Start 06/14/16 at 02:00 Miscellaneous Information 1 ea NOTE XX ; Start 06/13/16 at 23:45 Glucose (Glutose) 15 gm Q15M PRN PO DECREASED GLUCOSE; Start 06/13/16 at 23:45 Glucose (Glutose) 22.5 gm Q15M PRN PO DECREASED GLUCOSE; Start 06/13/16 at 23: 45 Dextrose (D50w Syringe) 25 ml Q15M PRN IV DECREASED GLUCOSE; Start 06/13/16 at 23:45 Dextrose (D50w Syringe) 50 ml Q15M PRN IV DECREASED GLUCOSE; Start 06/13/16 at 23:45 Glucagon (Glucagen) 1 mg Q15M PRN IM DECREASED GLUCOSE; Start 06/13/16 at 23:45 Glucose (Glutose) 15 gm Q15M PRN BUCCAL DECREASED GLUCOSE; Start 06/13/16 at 23 :45 YISSEL RESENDIZ Jun 14, 2016 09:35
[2016-06-14] MEDS: LORAZEPAM 2 MG INJ IV PRN ×2 (14:57→20:27)
--- NOTE | 2016-06-14 15:28 | PN ---
DATE: 06/14/2016 SUBJECTIVE: Mr. Coyne is hospital day 2 from a fistulizing diverticulitis. The patient is status post a drain placement. He is better, tolerating a soft diet. OBJECTIVE: VITAL SIGNS: He is currently afebrile. Vital signs stable. ABDOMEN: Soft, less distended, less tender. LABORATORY DATA: Reveal a white count of 7, hematocrit of 45, and platelets of 339. He did undergo a successful drainage yesterday. ASSESSMENT AND PLAN: Mr. Coyne is a 55-year-old male with fistulizing diverticulitis. 1. He is status post percutaneous drain placement. 2. Should able to discharge home tomorrow on oral antibiotics for 2 weeks. 3. The patient to follow up in my office in 10 days to discuss surgical resection ____ in 4 to 6 we eks. 4. We will determine when to remove the drain in an office visit, but the patient should be dischar ged home with drain in place. Dictated By: KARL HINDS/MARLENA Conf#: [id number] DID#: [id number] CC: YISSEL RESENDIZ;*EndCC*
[2016-06-14 19:55] VITALS: BP 135/82; RESP 16
[2016-06-14] MEDS: ATORVASTATIN 40 MG TAB PO SCH (20:07)
[2016-06-15] MEDS: ACCU-CHEK XX SCH (02:00)
[2016-06-15] MEDS: VANCOMYCIN 1.5 GM in SOD CHLORIDE 0.9% 250 ML IVPB SCH (02:41)
[2016-06-15] MEDS: PANTOPRAZOLE (EC) 40 MG TAB PO SCH (05:19)
[2016-06-15] MEDS: SOD CHLORIDE 0.45% 1,000 ML IV SCH ×3 (05:19→21:07)
[2016-06-15] MEDS: PIPER-TAZO 3.375 GM IV (PMX) 100 ML IVPB SCH ×3 (05:19→18:00)
[2016-06-15] MEDS: oxyCODONE 5 MG TAB PO PRN ×2 (07:40→17:59)
[2016-06-15] MEDS: INSULIN ASPART [NOVOLOG] 3 ML PEN SC SCH ×4 (08:07→20:59)
[2016-06-15 08:09] VITALS: BP 137/85; RESP 20
[2016-06-15] MEDS: MULTIVIT/CA CARB/B CMPLX/FA TAB PO SCH (08:40)
[2016-06-15] MEDS: HEPARIN 5,000 UNIT/0.5 ML VIAL SC SCH (08:43)
[2016-06-15 10:22] LABS: ADD SCAN DIFF NO
[2016-06-15 10:25] LABS: BASOPHILS % 0.6 % (0.0-2.0); EOSINOPHILS # 0.2 10^3/ul (0.0-0.5); EOSINOPHILS % 2.1 % (0.0-7.0); HEMOGLOBIN 15.4 g/dl (14.0-18.0); LYMPHOCYTES # 1.6 10^3/ul (0.8-2.9); LYMPHOCYTES % 22.7 % (15.0-51.0); MEAN CORPUSCULAR HEMOGLOBIN 29.9 pg (29.0-33.0); MEAN CORPUSCULAR HGB CONC 32.8 g/dl (32.0-37.0); MEAN CORPUSCULAR VOLUME 91.3 fl (82.0-101.0); MONOCYTE # 0.6 10^3/ul (0.3-0.9); MONOCYTES % 7.6 % (0.0-11.0); NEUTROPHIL # 4.7 10^3/ul (1.6-7.5); NEUTROPHILS % 64.6 % (39.0-77.0); PLATELET COUNT 437 10^3/UL (140-415); RED BLOOD COUNT 5.15 10^6/ul (4.70-6.10); RED CELL DISTRIBUTION WIDTH 14.3 % (11.5-14.5); WHITE BLOOD COUNT 7.2 10^3/ul (4.8-10.8)
[2016-06-15 10:34] LABS: POTASSIUM 4.1 mmol/L (3.5-5.1)
[2016-06-15] MEDS: HYDROCODONE/APAP (5/325) TAB PO PRN (10:35)
[2016-06-15 10:36] LABS: CREATININE 0.77 mg/dl (0.61-1.24)
[2016-06-15 10:37] LABS: CALCIUM 9.2 mg/dl (8.4-10.2)
[2016-06-15] MEDS: morphine 2 MG INJ IV PRN ×2 (13:09→21:01)
--- NOTE | 2016-06-15 13:17 | PN ---
DATE: 06/15/2016 SUBJECTIVE: Mr. Coyne is now hospital day 3 for his fistulizing diverticulitis. The patient is w ithout complaints. He is tolerating a soft diet. OBJECTIVE: VITAL SIGNS: He is afebrile. Vital signs stable. ABDOMEN: Soft, nontender, nondistended. LABORATORY DATA: There are no labs pending today. He still has left lower quadrant drain intact. ASSESSMENT AND PLAN: Mr. Coyne is stable for discharge to be discharged home with oral antibiotic s and will follow up with me in a week from tomorrow. Dictated By: KARL HINDS/NTS Conf#: [id number] DID#: [id number]
[2016-06-15] MEDS: NICOTINE (21 MG/24 HR) PATCH TRANSDERM SCH (13:46)
--- NOTE | 2016-06-15 14:46 | PN ---
Date/Time of Note Date/Time of Note DATE: 06/15/16 TIME: 14:35 Assessment/Plan VTE Prophylaxis VTE Prophylaxis Intervention: LMWH Lines/Catheters [facility] Per[facility] IV Urinary Cath still in place: No Assessment/Plan Assessment/Plan 55 yo M with 1. Fistulizing diverticulitis Cultures growing Gm-ve rods, alphahmolytic strep and staph 2. L Subcutaneous abscess 2/2 #1 s/p drain 3. Smaller Intraperitoneal abscess on CT 4. L sided hernia 5. Diabetes type 2 : controlled 6. Dyslipidemia: statin 7. Tobacco user PLAN: * Cleared for d/c by surgery, however final cultures still pending and external abscess versus pustule forming * Continue in house abx for now * ID consult for appropriate home regimen * Will need nursing to help with drain mgt * Supportive care * Smoking Cessation Therapy: Pt. was counselled for greater than 3 minutes on the health risks of continued smoking and the benefits of cessation and this will continue to be reinforced throughout hospitalization. Subjective 24 Hr Interval Summary Free Text/Dictation still with abd pain and concerned about small pustule forming in L groin Exam/Review of Systems Vital Signs Vitals Vital Signs Date Time Temp Pulse Resp B/P Pulse Ox O2 Delivery O2 Flow Rate FiO2 06/15/16 08:09 98.0 80 20 137/85 96 06/13/16 14:40 Nasal Cannula 2 Intake and Output 06/14/16 06/14/16 06/15/16 15:00 23:00 07:00 Intake Total 200 ml 2320 ml 1125 ml Output Total 75 ml 15 ml Balance 125 ml 2320 ml 1110 ml Exam GENERAL: The patient is lying in bed, answering questions appropriately, in no acute distress. HEENT: Pupils equal, round, reactive to light. Extraocular muscles intact. NECK: Supple; no thyromegaly. LUNGS: Clear to auscultation bilaterally. CARDIOVASCULAR: S1, S2 heard, RRR, No rubs or gallops. ABDOMEN: Some tenderness to palpation in the left lower quadrant. There is some overlying erythema with cellulitis in the left pelvis and a superficial pustule is forming there. Drain noted in L lower quadrant flank. Normal bowel sounds. MUSCULOSKELETAL: No lower extremity edema bilaterally. NEUROLOGIC: No focal deficits. Results Result Diagram: 06/15/16 1000 5/1/17 1010 Results 24 hrs Laboratory Tests Test 06/14/16 17:21 06/14/16 20:06 06/15/16 07:59 06/15/16 10:00 Bedside Glucose 176 161 174 White Blood Count 7.2 Red Blood Count 5.15 Hemoglobin 15.4 Hematocrit 47.0 Mean Corpuscular Volume 91.3 Mean Corpuscular Hemoglobin 29.9 Mean Corpuscular Hemoglobin Concent 32.8 Red Cell Distribution Width 14.3 Platelet Count 437 H Mean Platelet Volume 9.0 Neutrophils % 64.6 Lymphocytes % 22.7 Monocytes % 7.6 Eosinophils % 2.1 Basophils % 0.6 Nucleated Red Blood Cells % 0.0 Neutrophils # 4.7 Lymphocytes # 1.6 Monocytes # 0.6 Eosinophils # 0.2 Basophils # 0.0 Nucleated Red Blood Cells # 0.0 Test 06/15/16 10:10 06/15/16 12:25 Sodium Level 137 Potassium Level 4.1 Chloride Level 100 Carbon Dioxide Level 27 Anion Gap 14 Blood Urea Nitrogen 7 Creatinine 0.77 Glucose Level 140 Calcium Level 9.2 Bedside Glucose 164 Medications Medications Current Medications Ondansetron HCl (Zofran Inj) 4 mg Q6H PRN IV NAUSEA AND/OR VOMITING; Start at 18:30 Acetaminophen (Tylenol Tab) 650 mg Q6H PRN PO PAIN LEVEL 1-3 OR FEVER; Start at 18:30 Acetaminophen/ Hydrocodone Bitart ([place] (5/325)) 1 tab Q6H PRN PO MODERATE PAIN LEVEL 4-6 Last administered on 06/15/16 10:35; Admin Dose 1 TAB; Start at 18:30 Morphine Sulfate (morphine) 2 mg Q4H PRN IV SEVERE PAIN LEVEL 7-10 Last administered on 06/15/16 13:09; Admin Dose 2 MG; Start 06/12/16 at 18:30 Docusate Sodium (Colace) 100 mg Q12H PRN PO CONSTIPATION Last administered on 07:51; Admin Dose 100 MG; Start 06/12/16 at 18:30 Magnesium Hydroxide (Milk Of Mag) 30 ml DAILY PRN PO CONSTIPATION; Start at 18:30 Sodium Biphosphate/ Sodium Phosphate (Fleet Enema) 133 ml DAILY PRN [place] CONSTIPATION; Start 06/12/16 at 18:30 Pantoprazole (Protonix Tab) 40 mg DAILY@06 PO Last administered on 06/15/16 05: 19; Admin Dose 40 MG; Start 06/13/16 at 06:00 Heparin Sodium (Porcine) 5000 unit 5,000 unit Q12 SC Last administered on 08:43; Admin Dose 5,000 UNIT; Start 06/12/16 at 21:00 Sodium Chloride (1/2 NS) 1,000 ml @ 75 mls/hr [id number] IV Last administered on 06/15/16 05:19; Admin Dose 75 MLS/HR; Start 06/12/16 at 18:06 Lorazepam 0.5 mg 0.5 mg Q6H PRN IV ANXIETY Last administered on 06/14/16 20:27 ; Admin Dose 0.5 MG; Start 06/12/16 at 18:30 Piperacillin Sod/ Tazobactam Sod (Zosyn 3.375gm/ 100 ml (Pmx)) 100 ml @ 200 mls /hr Q6 IVPB Last administered on 06/15/16 12:27; Admin Dose 200 MLS/HR; Start 06/13/16 at 00:00 Hydralazine HCl (Apresoline) 10 mg Q6H PRN IV ELEVATED BLOOD PRESSURE; Start at 18:30 Nitroglycerin (Nitroglycerin (Sl Tab) 0.4 Mg) 1 tab Q5M PRN SL ANGINA; Start at 18:30 Atorvastatin Calcium (Lipitor) 40 mg QHS PO ; Start 06/12/16 at 21:00 Multivit/Ca Carb/ B Cmplx/FA/Prenat (Monik-[place]) 1 tab DAILY PO Last administered on 06/15/16 08:40; Admin Dose 1 TAB; Start 06/13/16 at 09:00 Miscellaneous Information 1 ea NOTE XX ; Start 06/12/16 at 18:30 Glucose (Glutose) 15 gm Q15M PRN PO DECREASED GLUCOSE; Start 06/12/16 at 18:30 Glucose (Glutose) 22.5 gm Q15M PRN PO DECREASED GLUCOSE; Start 06/12/16 at 18: 30 Dextrose (D50w Syringe) 25 ml Q15M PRN IV DECREASED GLUCOSE; Start 06/12/16 at 18:30 Dextrose (D50w Syringe) 50 ml Q15M PRN IV DECREASED GLUCOSE; Start 06/12/16 at 18:30 Glucagon (Glucagen) 1 mg Q15M PRN IM DECREASED GLUCOSE; Start 06/12/16 at 18:30 Glucose (Glutose) 15 gm Q15M PRN BUCCAL DECREASED GLUCOSE; Start 06/12/16 at 18 :30 Oxycodone HCl (Roxicodone) 5 mg Q4H PRN PO SEVERE PAIN Last administered on 06/15 07:40; Admin Dose 5 MG; Start 06/13/16 at 17:00 Insulin Glargine (Lantus) 10 unit DAILY@20 SC Last administered on 06/14/16 20 :20; Admin Dose 10 UNIT; Start 06/13/16 at 20:00 Diagnostic Test (Pha) (Accu-Chek) 1 ea 02 XX Last administered on 06/14/16 02: 36; Admin Dose 1 EA; Start 06/14/16 at 02:00 Miscellaneous Information 1 ea NOTE XX ; Start 06/13/16 at 23:45 Glucose (Glutose) 15 gm Q15M PRN PO DECREASED GLUCOSE; Start 06/13/16 at 23:45 Glucose (Glutose) 22.5 gm Q15M PRN PO DECREASED GLUCOSE; Start 06/13/16 at 23: 45 Dextrose (D50w Syringe) 25 ml Q15M PRN IV DECREASED GLUCOSE; Start 06/13/16 at 23:45 Dextrose (D50w Syringe) 50 ml Q15M PRN IV DECREASED GLUCOSE; Start 06/13/16 at 23:45 Glucagon (Glucagen) 1 mg Q15M PRN IM DECREASED GLUCOSE; Start 06/13/16 at 23:45 Glucose (Glutose) 15 gm Q15M PRN BUCCAL DECREASED GLUCOSE; Start 06/13/16 at 23 :45 Nicotine (Nicoderm 21 Mg/ 24hr) 1 patch DAILY TRANSDERM Last administered on 13:46; Admin Dose 1 PATCH; Start 06/15/16 at 13:30 ANTIONE ARTEAGA June 15, 2016 14:45
--- NOTE | 2016-06-15 19:32 | CONS ---
DATE OF ADMISSION: 06/12/2016 DATE OF CONSULTATION: 06/15/2016 INFECTIOUS DISEASE CONSULTATION REASON FOR CONSULTATION: Antibiotic management. HISTORY OF PRESENT ILLNESS: Vitor Coyne is a pleasant 55-year-old white male who comes in with left lower quadrant pain and is being seen for antibiotic management. His past problems include: 1. Adult-onset diabetes mellitus. 2. Inguinal hernia. 3. Essential hypertension. 4. Hypercholesterolemia. 5. Scrotal I and D in February. Patient presented to the hospital on the when he noticed that his hernia on the left side was g etting bigger and redder. He was told that the hernia had been present for some time, was not aware of it. He also has been constipated for a long time. There was an overlying erythema and so he de cided to come to the emergency room. An imaging study showed heavy proximal sigmoid colon inflammat ion with associated fistulization to the subcutaneous adipose tissue of the left anterior pelvis as well as fistulization to the urinary bladder. According to the CT scan, he had first a testicular u ltrasound which showed 6.3 x 2.3 x 3.0 subcutaneous focus in the left inguinal region which looked l jeremy a phlegmon or developing abscess. There was complete resolution of the previously described rig ht testicular abscess. A CT scan of the abdomen and pelvis as previously outlined showed fistulizat ion at the subcutaneous aspect of the fistula. There was a 7 x 6.4 x 4.9 cm air fluid collection co nsistent with an abscess. There is also a small 1.7 x 2 x 1.3 cm pericolonic abscess intraperitonea lly. He had grade I anterolisthesis at L5-S1, may also consider Crohn's disease, and heavy aortic a therosclerosis was present. He had, on the , a successful CT-guided pelvic abscess drainage and an 8-[place] multiparous drainage catheter was advanced into the fluid collection in the left inguin al region with trocar technique. The patient now is developing increasing redness and bulging in th e medial aspect of the wound, although the drains are present. His white count today is 7.2, H and H of 15.4 and 47, platelet count 437,000. His BUN and creatinine were 7 and 0.77. His urine showed 3+ leukocyte esterase, 25 to 50 white cells per high-powered field. Microbiology is growing gram-n egative rods, alpha-hemolytic strep and staph species. He was placed on vancomycin and then switche d to Zosyn which he is currently on. PAST MEDICAL HISTORY: Operations as outlined. FAMILY HISTORY: Noncontributory. SOCIAL HISTORY: He does not smoke, drink or abuse drugs. ALLERGIES: NONE. MEDICATIONS: Per chart. SOCIAL HISTORY: Occasional alcohol abuse, but no smoking or IV drug abuse. REVIEW OF SYSTEMS: Noncontributory. PHYSICAL EXAMINATION: GENERAL: The patient is a well-developed, well-nourished white male who is alert, responsive, in no acute distress. VITAL SIGNS: Stable. His T-max is 98.8, T-current is 98. SKIN: Without generalized rash. HEENT: Within normal limits. NECK: Supple. LYMPH NODES: None palpable. CHEST: Decreased breath sounds at the bases. HEART: Without murmur or gallop. ABDOMEN: Soft, nontender. He has a drain in the left lower quadrant and medial to that is a beginn ing of a subcutaneous abscess formation. EXTREMITIES: Without cyanosis, clubbing, or edema. RECTAL AND GENITAL: Deferred. NEUROLOGIC: No focal neurological abnormalities. IMPRESSION AND PLAN: The patient has had diverticulitis with a diverticular abscess both intraperit oneally as well as going to the subcutaneous tissue. He is currently on Zosyn to which I would conc ur, but will await the results of the culture itself. I will dictate my findings to the hospitalist and also to Dr. David Silvestre, the surgeon. It should be noted that at some point in the future, Ray Silvestre plans to remove the section of colon which has diverticulitis in order to solve this probl em. Dictated By: BRANDY LANDAVERDE MD, JD/MARLENA Conf#: [id number] DID#: [id number]
[2016-06-15 20:19] VITALS: BP 154/87; RESP 18
[2016-06-15] MEDS: ATORVASTATIN 40 MG TAB PO SCH (20:44)
[2016-06-15] MEDS: INSULIN GLARGINE [LANtus] 3 ML PEN SC SCH (20:58)
[2016-06-15] MEDS: LORAZEPAM 2 MG INJ IV PRN (21:01)
[2016-06-16] MEDS: PIPER-TAZO 3.375 GM IV (PMX) 100 ML IVPB SCH ×3 (00:36→12:12)
[2016-06-16] MEDS: ACCU-CHEK XX SCH (02:43)
[2016-06-16] MEDS: oxyCODONE 5 MG TAB PO PRN ×4 (02:51→21:27)
[2016-06-16] MEDS: LORAZEPAM 2 MG INJ IV PRN ×2 (03:21→21:13)
[2016-06-16] MEDS: PANTOPRAZOLE (EC) 40 MG TAB PO SCH (05:54)
[2016-06-16] MEDS: INSULIN ASPART [NOVOLOG] 3 ML PEN SC SCH ×4 (08:00→21:51)
[2016-06-16 08:30] VITALS: BP 126/80; RESP 18
[2016-06-16 08:39] LABS: ADD SCAN DIFF NO
[2016-06-16 08:46] LABS: BASOPHILS % 0.5 % (0.0-2.0); EOSINOPHILS # 0.2 10^3/ul (0.0-0.5); EOSINOPHILS % 2.1 % (0.0-7.0); HEMATOCRIT 47.2 % (42.0-52.0); HEMOGLOBIN 15.6 g/dl (14.0-18.0); LYMPHOCYTES # 1.4 10^3/ul (0.8-2.9); MEAN CORPUSCULAR HEMOGLOBIN 30.1 pg (29.0-33.0); MEAN CORPUSCULAR HGB CONC 33.1 g/dl (32.0-37.0); MEAN CORPUSCULAR VOLUME 91.1 fl (82.0-101.0); MEAN PLATELET VOLUME 9.1 fl (7.4-10.4); MONOCYTE # 0.7 10^3/ul (0.3-0.9); MONOCYTES % 9.3 % (0.0-11.0); NEUTROPHIL # 5.3 10^3/ul (1.6-7.5); NEUTROPHILS % 68.2 % (39.0-77.0); PLATELET COUNT 453 10^3/UL (140-415); RED BLOOD COUNT 5.18 10^6/ul (4.70-6.10); RED CELL DISTRIBUTION WIDTH 14.1 % (11.5-14.5); WHITE BLOOD COUNT 7.8 10^3/ul (4.8-10.8)
[2016-06-16] MEDS: MULTIVIT/CA CARB/B CMPLX/FA TAB PO SCH (09:03)
[2016-06-16] MEDS: NICOTINE (21 MG/24 HR) PATCH TRANSDERM SCH (09:04)
[2016-06-16] MEDS: ENOXAPARIN 40 MG/0.4 ML SYG SC SCH (09:25)
[2016-06-16 09:31] LABS: CALCIUM 9.4 mg/dl (8.4-10.2); CREATININE 0.76 mg/dl (0.61-1.24); POTASSIUM 4.1 mmol/L (3.5-5.1)
[2016-06-16] MEDS ORDERED: LIDOCAINE 1% (MDV) 20 ML INJ IM SCH (12:00)
[2016-06-16] MEDS: SOD CHLORIDE 0.45% 1,000 ML IV SCH (12:12)
[2016-06-16] MEDS ORDERED: VANCOMYCIN IV PER PHARMACY XX SCH (12:30)
[2016-06-16] MEDS ORDERED: CEFTRIAXONE 1 GM/50 ML (PMX) 50 ML IVPB SCH (12:30)
--- NOTE | 2016-06-16 12:44 | PN ---
DATE: 06/16/2016 INFECTIOUS DISEASE PROGRESS NOTE SUBJECTIVE: No acute changes. The patient is alert, looks comfortable, no fevers. LABORATORY DATA: WBC 7.8, no shift, no bands. BUN 6, creatinine 0.76. MICROBIOLOGY: Intraabdominal fluid culture growing Enterobacter cloacae, multi-drug resistant, alph a hemolytic strep species and coagulase-negative staph species. ANTIMICROBIALS: The patient is on Zosyn. PHYSICAL EXAMINATION: GENERAL: This is well-developed, middle-aged white man who is alert, in no distress. HEENT: Head atraumatic, normocephalic. Sclerae anicteric. Buccal mucosa pink. NECK: Supple, trachea midline. CHEST: Rise symmetrical. Breath sounds clear. HEART: S1, S2. ABDOMEN: Soft, bowel sounds present. EXTREMITIES: Without cyanosis. ASSESSMENT: 1. Chronic fistulizing diverticulitis with intraabdominal abscess status post CT-guided aspiration with drainage catheter placement. 2. Diabetes. 3. Hypertension. PLAN: The patient remains stable. As per his cultures, we will anticipate to send him home on vanc omycin and Rocephin for at least 2 weeks. The patient will need a PICC line and home health arrange ment. The patient to follow with surgery outpatient and follow recommendations. He may need a long er antibiotics based on his response. Above was discussed with the patient and Dr. Xie. Above was discussed with case management. Dictated By: JESSE DE LEON RETIREMENT MANAGER for BRANDY VIGIL/MARLENA Conf#: [id number] DID#: [id number]
[2016-06-16] MEDS: morphine 2 MG INJ IV PRN (15:38)
[2016-06-16] MEDS ORDERED: LACTINEX PO (15:45)
[2016-06-16] MEDS ORDERED: VANC1.5P10 IV (15:45)
[2016-06-16] MEDS ORDERED: CEFT1PIG2 IVPB (15:45)
[2016-06-16] MEDS ORDERED: LIDOCAINE 1% (MPF) 5 ML VIAL SC ONE (16:00)
--- NOTE | 2016-06-16 17:02 | PN ---
DATE: 06/16/2016 SUBJECTIVE: Mr. Coyne is now hospital day 4 for his fistulizing diverticulitis. The patient had some drainage next to his catheter starting last night. This held his discharge. Patient is feelin g well today. No abdominal complaints. OBJECTIVE VITAL SIGNS: He is afebrile. Vital signs stable. ABDOMEN: Soft, nontender, nondistended. His left groin reveals an opening just medial to the percu taneous drain draining purulent fluid. This was probed by me and packed with gauze and removed all other fluid. LABORATORY DATA: Reveal a white count of 8, hematocrit of 47, platelets of 453. Sodium 138, potass ium 4.1, chloride 103, CO2 27, BUN and creatinine 12 and 0.6, glucose 121. ASSESSMENT AND PLAN: Mr. Coyne is a 55-year-old [facility] day 4 for fistulizing diverticulitis. 1. Status post incision and drainage of left groin, recommend packing every day with dry gauze. 2. Continue IV antibiotics. 3. Follow up in my office in the next week. 4. We recommend a colon resection in 4 to 6 weeks. Dictated By: KARL HINDS/NTS Conf#: [id number] DID#: [id number]
--- NOTE | 2016-06-16 17:34 | PN ---
Date/Time of Note Date/Time of Note DATE: 06/16/16 TIME: 17:25 Assessment/Plan VTE Prophylaxis VTE Prophylaxis Intervention: LMWH Lines/Catheters IV [facility] ([facility] Peripheral IV Urinary Cath still in place: No Assessment/Plan Assessment/Plan 55 yo M with 1. Fistulizing diverticulitis Cultures growing Enterococcus, alphahmolytic strep and MDR staph 2. L Subcutaneous abscesses 2/2 #1 s/p drain 3. Smaller Intraperitoneal abscess on CT 4. L sided hernia 5. Diabetes type 2 : controlled 6. Dyslipidemia: statin 7. Tobacco user PLAN: * Patient needs bedside I and D, PICC line and Home IV abx for at least 2 more weeks * Will need nursing to help with drain mgt and wound care * Supportive care * Smoking Cessation Therapy: Pt. was counselled for greater than 3 minutes on the health risks of continued smoking and the benefits of cessation and this will continue to be reinforced throughout hospitalization. * D/c after PICC line and bedside drainage Subjective 24 Hr Interval Summary Free Text/Dictation Patient seen and examined. pain is much better having a lot of drainage from pustule just adjacent to drain Exam/Review of Systems Vital Signs Vitals Vital Signs Date Time Temp Pulse Resp B/P Pulse Ox O2 Delivery O2 Flow Rate FiO2 06/16/16 08:30 97.9 98 18 126/80 97 06/13/16 14:40 Nasal Cannula 2 Intake and Output 06/15/16 06/15/16 06/16/16 15:00 23:00 07:00 Intake Total 500 ml 1025 ml 800 ml Output Total 15 ml 10 ml Balance 485 ml 1015 ml 800 ml Exam Constitutional: alert, oriented Eyes: PERRL ENMT: mucosa pink and moist Neck: supple Respiratory: clear to auscultation Cardiovascular: regular rate and rhythm, No murmurs/extra sounds Gastrointestinal: other (left lower qudarant abscess has popped to the skin and is significantly oozing, Attempts to drain it manually at bedside unsuccessful, will need bedside I and D. drain noted adjacent. ), soft Results Result Diagram: 06/16/16 0800 06/16/16 0810 Results 24 hrs Laboratory Tests Test 06/15/16 17:30 06/15/16 20:43 06/16/16 02:42 06/16/16 07:58 Bedside Glucose 202 183 142 113 Test 06/16/16 08:00 06/16/16 08:10 06/16/16 12:08 White Blood Count 7.8 Red Blood Count 5.18 Hemoglobin 15.6 Hematocrit 47.2 Mean Corpuscular Volume 91.1 Mean Corpuscular Hemoglobin 30.1 Mean Corpuscular Hemoglobin Concent 33.1 Red Cell Distribution Width 14.1 Platelet Count 453 H Mean Platelet Volume 9.1 Neutrophils % 68.2 Lymphocytes % 18.0 Monocytes % 9.3 Eosinophils % 2.1 Basophils % 0.5 Nucleated Red Blood Cells % 0.0 Neutrophils # 5.3 Lymphocytes # 1.4 Monocytes # 0.7 Eosinophils # 0.2 Basophils # 0.0 Nucleated Red Blood Cells # 0.0 Sodium Level 138 Potassium Level 4.1 Chloride Level 103 Carbon Dioxide Level 27 Anion Gap 12 Blood Urea Nitrogen 6 L Creatinine 0.76 Glucose Level 121 Calcium Level 9.4 Bedside Glucose 96 Medications Medications Current Medications Ondansetron HCl (Zofran Inj) 4 mg Q6H PRN IV NAUSEA AND/OR VOMITING; Start at 18:30 Acetaminophen (Tylenol Tab) 650 mg Q6H PRN PO PAIN LEVEL 1-3 OR FEVER; Start at 18:30 Acetaminophen/ Hydrocodone Bitart ([place] (5/325)) 1 tab Q6H PRN PO MODERATE PAIN LEVEL 4-6 Last administered on 06/15/16 10:35; Admin Dose 1 TAB; Start at 18:30 Morphine Sulfate (morphine) 2 mg Q4H PRN IV SEVERE PAIN LEVEL 7-10 Last administered on 06/16/16 15:38; Admin Dose 2 MG; Start 06/12/16 at 18:30 Docusate Sodium (Colace) 100 mg Q12H PRN PO CONSTIPATION Last administered on 07:51; Admin Dose 100 MG; Start 06/12/16 at 18:30 Magnesium Hydroxide (Milk Of Mag) 30 ml DAILY PRN PO CONSTIPATION; Start at 18:30 Sodium Biphosphate/ Sodium Phosphate (Fleet Enema) 133 ml DAILY PRN [place] CONSTIPATION; Start 06/12/16 at 18:30 Pantoprazole 40 mg 40 mg DAILY@06 PO Last administered on 06/16/16 05:54; Admin Dose 40 MG; Start 06/13/16 at 06:00 Sodium Chloride (1/2 NS) 1,000 ml @ 75 mls/hr [id number] IV Last administered on 06/16/16 12:12; Admin Dose 75 MLS/HR; Start 06/12/16 at 18:06 Lorazepam (Ativan) 0.5 mg Q6H PRN IV ANXIETY Last administered on 06/16/16 03: 21; Admin Dose 0.5 MG; Start 06/12/16 at 18:30 Hydralazine HCl (Apresoline) 10 mg Q6H PRN IV ELEVATED BLOOD PRESSURE; Start at 18:30 Nitroglycerin (Nitroglycerin (Sl Tab) 0.4 Mg) 1 tab Q5M PRN SL ANGINA; Start at 18:30 Atorvastatin Calcium (Lipitor) 40 mg QHS PO Last administered on 06/15/16 20:44 ; Admin Dose 40 MG; Start 06/12/16 at 21:00 Multivit/Ca Carb/ B Cmplx/FA/Prenat (Monik-[place]) 1 tab DAILY PO Last administered on 06/16/16 09:03; Admin Dose 1 TAB; Start 06/13/16 at 09:00 Miscellaneous Information 1 ea NOTE XX ; Start 06/12/16 at 18:30 Glucose (Glutose) 15 gm Q15M PRN PO DECREASED GLUCOSE; Start 06/12/16 at 18:30 Glucose (Glutose) 22.5 gm Q15M PRN PO DECREASED GLUCOSE; Start 06/12/16 at 18: 30 Dextrose (D50w Syringe) 25 ml Q15M PRN IV DECREASED GLUCOSE; Start 06/12/16 at 18:30 Dextrose (D50w Syringe) 50 ml Q15M PRN IV DECREASED GLUCOSE; Start 06/12/16 at 18:30 Glucagon (Glucagen) 1 mg Q15M PRN IM DECREASED GLUCOSE; Start 06/12/16 at 18:30 Glucose (Glutose) 15 gm Q15M PRN BUCCAL DECREASED GLUCOSE; Start 06/12/16 at 18 :30 Oxycodone HCl (Roxicodone) 5 mg Q4H PRN PO SEVERE PAIN Last administered on 06/16 15:38; Admin Dose 5 MG; Start 06/13/16 at 17:00 Insulin Glargine (Lantus) 10 unit DAILY@20 SC Last administered on 06/15/16 20: 58; Admin Dose 10 UNIT; Start 06/13/16 at 20:00 Diagnostic Test (Pha) (Accu-Chek) 1 ea 02 XX Last administered on 06/16/16 02: 43; Admin Dose 1 EA; Start 06/14/16 at 02:00 Miscellaneous Information 1 ea NOTE XX ; Start 06/13/16 at 23:45 Glucose (Glutose) 15 gm Q15M PRN PO DECREASED GLUCOSE; Start 06/13/16 at 23:45 Glucose (Glutose) 22.5 gm Q15M PRN PO DECREASED GLUCOSE; Start 06/13/16 at 23: 45 Dextrose (D50w Syringe) 25 ml Q15M PRN IV DECREASED GLUCOSE; Start 06/13/16 at 23:45 Dextrose (D50w Syringe) 50 ml Q15M PRN IV DECREASED GLUCOSE; Start 06/13/16 at 23:45 Glucagon (Glucagen) 1 mg Q15M PRN IM DECREASED GLUCOSE; Start 06/13/16 at 23:45 Glucose (Glutose) 15 gm Q15M PRN BUCCAL DECREASED GLUCOSE; Start 06/13/16 at 23 :45 Nicotine (Nicoderm 21 Mg/ 24hr) 1 patch DAILY TRANSDERM Last administered on 09:04; Admin Dose 1 PATCH; Start 06/15/16 at 13:30 Enoxaparin Sodium 40 mg 40 mg DAILY SC Last administered on 06/16/16 09:25; Admin Dose 40 MG; Start 06/16/16 at 09:00 Ceftriaxone Sodium 50 ml @ 100 mls/hr Q24H IVPB Last administered on 06/16/16 15:46; Admin Dose 100 MLS/HR; Start 06/16/16 at 12:30 Vancomycin HCl/ Sodium Chloride (Vancocin/NS) 250 ml @ 83.333 mls/ hr Q12H IVPB ; Start 06/16/16 at 14:00 ANTIONE ARTEAGA June 16, 2016 17:34
[2016-06-16] MEDS: VANCOMYCIN 1.5 GM in SOD CHLORIDE 0.9% 250 ML IVPB SCH (17:36)
[2016-06-16 19:41] VITALS: BP 123/82; RESP 18
[2016-06-16] MEDS: ATORVASTATIN 40 MG TAB PO SCH (21:12)
[2016-06-16] MEDS: INSULIN GLARGINE [LANtus] 3 ML PEN SC SCH (21:50)
[2016-06-17] MEDS: ACCU-CHEK XX SCH (02:00)
[2016-06-17] MEDS: VANCOMYCIN 1.5 GM in SOD CHLORIDE 0.9% 250 ML IVPB SCH (02:43)
[2016-06-17] MEDS: PANTOPRAZOLE (EC) 40 MG TAB PO SCH (05:40)
[2016-06-17] MEDS: SOD CHLORIDE 0.45% 1,000 ML IV SCH (05:40)
[2016-06-17] MEDS: oxyCODONE 5 MG TAB PO PRN (05:44)
[2016-06-17] MEDS: LORAZEPAM 2 MG INJ IV PRN (05:44)
[2016-06-17 07:45] VITALS: BP 137/84; RESP 18
[2016-06-17] MEDS: INSULIN ASPART [NOVOLOG] 3 ML PEN SC SCH ×2 (07:59→12:13)
[2016-06-17] MEDS: MULTIVIT/CA CARB/B CMPLX/FA TAB PO SCH (08:00)
[2016-06-17] MEDS: NICOTINE (21 MG/24 HR) PATCH TRANSDERM SCH (08:00)
[2016-06-17 08:02] LABS: ADD SCAN DIFF NO
[2016-06-17] MEDS: ENOXAPARIN 40 MG/0.4 ML SYG SC SCH (08:06)
[2016-06-17 08:07] LABS: BASOPHILS % 0.6 % (0.0-2.0); EOSINOPHILS # 0.2 10^3/ul (0.0-0.5); EOSINOPHILS % 2.5 % (0.0-7.0); HEMATOCRIT 44.6 % (42.0-52.0); HEMOGLOBIN 15.3 g/dl (14.0-18.0); LYMPHOCYTES # 1.1 10^3/ul (0.8-2.9); LYMPHOCYTES % 16.4 % (15.0-51.0); MEAN CORPUSCULAR HGB CONC 34.3 g/dl (32.0-37.0); MEAN CORPUSCULAR VOLUME 90.3 fl (82.0-101.0); MEAN PLATELET VOLUME 8.9 fl (7.4-10.4); MONOCYTE # 0.7 10^3/ul (0.3-0.9); MONOCYTES % 11.1 % (0.0-11.0); NEUTROPHIL # 4.3 10^3/ul (1.6-7.5); NEUTROPHILS % 66.9 % (39.0-77.0); PLATELET COUNT 405 10^3/UL (140-415); RED BLOOD COUNT 4.94 10^6/ul (4.70-6.10); RED CELL DISTRIBUTION WIDTH 13.8 % (11.5-14.5); WHITE BLOOD COUNT 6.5 10^3/ul (4.8-10.8)
[2016-06-17 08:29] LABS: POTASSIUM 3.8 mmol/L (3.5-5.1)
[2016-06-17 08:32] LABS: CREATININE 0.66 mg/dl (0.61-1.24)
[2016-06-17] MEDS ORDERED: DEXTROSE 5%-0.45% NACL 1,000 ML IV SCH (11:00)
[2016-06-17] MEDS ORDERED: HYDR-902 PO (11:46)
[2016-06-17] MEDS ORDERED: SOD CHLORIDE 0.9% 100 ML ONE (12:14)
--- NOTE | 2016-06-17 12:35 | PN ---
DATE: 06/17/2016 SUBJECTIVE: No events overnight. No fevers. The patient is alert, feels good, looks comfortable. Denies pain. He has some purulent drainage from the left lower abdominal wound and also in the abd ominal catheter. ANTIMICROBIALS: 1. Vancomycin. 2. Rocephin. LABORATORIES: WBC today 6.5, no shift, no bands. BUN 7, creatinine 0.66. MICROBIOLOGY: Abdominal fluid culture grew Enterobacter cloacae, alpha hemolytic strep species and coagulase-negative staph species. PHYSICAL EXAMINATION: GENERAL: Well-developed, middle-aged white man who is alert, in no distress. HEENT: Head atraumatic, normocephalic. Sclerae anicteric. Buccal mucosa dry. NECK: Supple. CHEST: Rise symmetrical. Breath sounds clear. HEART: S1, S2. ABDOMEN: Soft, bowel tones present. EXTREMITIES: Without cyanosis. ASSESSMENT: 1. Chronic fistulizing diverticulitis with intra-abdominal abscess, status post CT-guided drainage with catheter placement. 2. Left lower quadrant wound status post incision and drainage yesterday. 3. Diabetes. 4. Hypertension. PLAN: The patient remains stable pending PICC line. Anticipate discharge on current antibiotics fo r at least 2 weeks. Patient to follow with surgery as an outpatient for further recommendations. Dictated By: JESSE DE LEON VEHICLE REFINISHER for BRANDY VIGIL/MARLENA Conf#: [id number] DID#: [id number]
--- NOTE | 2016-06-17 15:49 | RADRPT ---
PROCEDURE: Ultrasound guidance for placement of needle in left upper extremity vein. CLINICAL INDICATION: Venous access. TECHNIQUE: Limited sonography of the left upper extremity was performed. Ultrasound images were recorded and s tored in the patient's medical record. COMPARISON: None. FINDINGS: The ultrasound images demonstrate a patent left upper extremity vein. The PICC line was inserted by the PICC line nurse. IMPRESSION: 1. Ultrasound guidance for a needle placement in a left upper extremity vein. 2. The left upper extremity vein is patent. RPTAT: QQ .Tl Fraser MD, MD Date Time Electronically viewed and signed by .Tl Fraser MD, MD on 06/17/2016 15:48 .R/
--- NOTE | 2016-06-17 16:11 | RADRPT ---
PROCEDURE: XR Chest. CLINICAL INDICATION: Check PICC line position. TECHNIQUE: Single frontal view. COMPARISON: No prior study is available for comparison. FINDINGS: There is a left arm PICC line with the tip in the cavoatrial junction region. The lungs are clear. The heart size is normal. There is no pleural effusion. There is no pneumothorax. IMPRESSION: 1. Satisfactory position of left arm PICC line. 2. Otherwise normal chest radiograph. RPTAT: QQ .Tl Fraser MD, Date Time Electronically viewed and signed by .Tl Fraser MD, MD on 06/17/2016 16:11 .R/
== END 2016-06-17 14:00 | disposition home health service (06) | DRG 391 ==
LOC: E/R 09:18 → MS2 16:51
PROVIDERS: ADMIT Hospitalist; ATTEND Hospitalist
PROC: 0J9C30Z Drainage of Pelvic Region Subcutaneous Tissue and Fascia with Drainage Device, Percutaneous Approach (ICD-10-PCS; principal; 2016-06-13)
PROC: 02HV33Z Insertion of Infusion Device into Superior Vena Cava, Percutaneous Approach (ICD-10-PCS; 2016-06-17)
PROC: B548ZZA Ultrasonography of Superior Vena Cava, Guidance (ICD-10-PCS; 2016-06-17)
DX: K57.20 Diverticulitis of large intestine with perforation and abscess without bleeding (principal); K65.1 Peritoneal abscess; K63.2 Fistula of intestine; L02.211 Cutaneous abscess of abdominal wall; I10 Essential (primary) hypertension; E11.9 Type 2 diabetes mellitus without complications; N32.1 Vesicointestinal fistula; L03.311 Cellulitis of abdominal wall; E78.00 Pure hypercholesterolemia, unspecified; K40.90 Unilateral inguinal hernia, without obstruction or gangrene, not specified as recurrent; B96.89 Other specified bacterial agents as the cause of diseases classified elsewhere; B95.4 Other streptococcus as the cause of diseases classified elsewhere; B95.7 Other staphylococcus as the cause of diseases classified elsewhere; F17.200 Nicotine dependence, unspecified, uncomplicated
CPT/HCPCS: 36415; 36569; 71010; 74176; 76870; 76937; 77012; 80048; 80053; 80061; 80202; 81001; 81003; 82962; 83036; 83605; 83690; 83735; 84100; 84439; 84443; 85025; 85610; 85730; 86850; 86900; 86901; 87040; 87070; 93005; 96365; 96366; 96367; 96372; 96375; 96376; J0696; J1170; J1200; J1644; J1650; J1815; J2060; J2250; J2270; J2543; J3010; J3370; J7030; J7042; J7050